=== PATIENT | female | born 1985 | race Native Hawaiian/Other Pacific Islander ===

== ENCOUNTER 2017-06-09 23:03 | Inpatient (IN) | payer OTHER ==
[~2017-06-09 23:03] MED LIST: AMIDATE IV ONE; ZEMURON IV ONE
[2017-06-09] MEDS ORDERED: ACTIDOSE-AQUA PO ONE (23:24)
[2017-06-09] MEDS ORDERED: ACTIDOSE SORBITOL ONE (23:24)
[2017-06-09] MEDS ORDERED: VASELINE LIP THERAPY TP PRN (23:25)
[2017-06-09] MEDS ORDERED: ARTIFICIAL TEARS OPHTH OINT OU PRN (23:25)
--- NOTE | 2017-06-09 23:30 | Emergency Department Report ---
ED General Adult HPI - General Chief complaint: Overdose Stated complaint: SUICIDAL Time Seen by Provider: 06/09/17 23:24 Source: patient, EMS (verbal report received from EMS.ems notes not available at time of chart dictation) Mode of arrival: Stretcher Limitations: Altered Mental Status, Physical Limitation, Other - History of Present Illness Initial comments: This is a 32-year-old female who was previously unknown to this provider. The patient is brought to the hospital by EMS for overdose and unresponsiveness. As per verbal report from EMS, patient overdosed on a number of medications, they don't know what medication she took, there are no how much he took, they think the ingestion was approximately 1 hour prior to arrival to this hospital. They report the patient was found collapsed in the bathroom. Upon arrival to the ER, the patient was very sleepy. She did answer some questions, and did respond to sternal rub, but then would immediately become obtunded again. Fingerstick was within normal limits. Given concern for polysubstance overdose , patient's altered mental status and obtundation, decision made to intubate patient for airway protection. Patient is intubated using rapid sequence intubation in cervical spine immobilization techniques. Because she is found on the floor, code trauma is called overhead. A postintubation x-ray demonstrated right mainstem intubation and left hemithorax atelectasis, endotracheal tube was retracted to 22 cm at the lips, post procedure x-ray demonstrated appropriate aeration of the bilateral lung szymanski and appropriate basement of the endotracheal tube. The patient is placed on a 1013, an oral gastric tube is ordered, 50 g of charcoal ordered, EKG, CT scan of the brain and cervical spine pending, serum toxicology studies pending, so far no family has arrived in the ER, we will discuss with the [facility] once her initial laboratory studies have resulted. -: This evening Consistency: constant Improves with: none Worsens with: none Associated Symptoms: confusion, weakness ED Review of Systems ROS: Stated complaint: SUICIDAL Other details as noted in HPI Comment: Unobtainable due to pts medical conditions ED Past Medical Hx - Past Medical History Previous Medical History?: Yes - Social History Smoking Status: Unknown if ever smoked ED Physical Exam - General Limitations: Altered Mental Status, Physical Limitation, Other General appearance: obtunded - Head Head exam: Present: atraumatic, normocephalic - Eye Eye exam: Present: PERRL, EOMI - ENT ENT exam: Present: normal exam, normal orophraynx - Neck Neck exam: Present: normal inspection. Absent: tenderness, meningismus - Respiratory Respiratory exam: Present: normal lung sounds bilaterally. Absent: respiratory distress, wheezes, rales, rhonchi, stridor - Cardiovascular Cardiovascular Exam: Present: normal rhythm, tachycardia, normal heart sounds. Absent: bradycardia, irregular rhythm, systolic murmur, diastolic murmur, rubs, gallop - GI/Abdominal GI/Abdominal exam: Present: soft, normal bowel sounds. Absent: distended, tenderness, guarding, rebound, rigid - Rectal Rectal exam: Present: normal inspection - External exam: Present: normal external exam - Extremities Exam Extremities exam: Present: normal inspection, full ROM, normal capillary refill , other (patient moving 4 extremities prior to intubation). Absent: pedal edema , joint swelling, calf tenderness - Back Exam Back exam: Present: normal inspection. Absent: tenderness, CVA tenderness (R), paraspinal tenderness - Neurological Exam Neurological exam: Present: altered - Psychiatric Psychiatric exam: Present: suicidal ideation - Skin Skin exam: Present: warm, dry ED Course Vital Signs 06/09/17 06/09/17 06/09/17 23:10 23:11 23:16 Pulse Rate 79 78 84 Respiratory 20 9 L Rate Blood Pressure 123/76 O2 Sat by Pulse 99 17 L 100 Oximetry 06/09/17 06/09/17 06/10/17 23:30 23:45 00:13 Pulse Rate 119 H 81 87 Respiratory 18 18 18 Rate Blood Pressure 179/114 168/101 168/101 O2 Sat by Pulse 99 100 100 Oximetry 06/10/17 06/10/17 06/10/17 00:16 00:30 00:46 Pulse Rate 87 85 82 Respiratory 18 18 19 Rate Blood Pressure 168/101 168/110 O2 Sat by Pulse 100 100 100 Oximetry 06/10/17 06/10/17 06/10/17 01:00 01:16 01:30 Pulse Rate 79 74 74 Respiratory 17 18 13 Rate Blood Pressure 139/89 129/75 126/83 O2 Sat by Pulse 100 100 100 Oximetry - Reevaluation(s) Reevaluation #1: 06/10/17 00:[address] scan of the brain and cervical spine negative for acute disease Reevaluation #2: 06/10/17 01:28 Serum toxicology studies are unremarkable. Urine toxicology study pending. EKG is unremarkable. 06/10/17 01:42 Reevaluation #3: 06/10/17 01:42 Case discussed with Krista at the [facility], who hasn't turn discussed the patient's care with Dr. Beckett consulting vertical mill operator. They recommend supportive care at this time. They're specifically okay with fentanyl and propofol sedation. Don't recommend any specific antidote at this time. Hospital physiciansto arrange admission. Reevaluation #4: 06/10/17 02:15 Arterial blood gases appreciated. Respiratory therapy to adjust FiO2 appropriately. The Hospital physician, Dr. Lopez accepts the patient to the medical service. - Consultations Consultation #1: 06/10/17 00:42 Case discussed with critical care physician, Dr. Hair; she agrees with management and will see the patient in consultation. - Intubation Time Out Performed: No (emergent) Sedative: Etomidate Mg Given: 20 Paralytic: Rocuronium Laryngoscope: Marlyn Size: 3 ET Tube Size: 7.5 Tube Secured Location: teeth Tube Placement Confirmation: visualized tube passing t Patient Tolerated Procedure: well Intubation Complications: none Additional Comments: Patient placed on nasal cannula at 15 L/m. Placed on bag valve mask. Received bag valve mask ventilation. Intubated with one attempt using direct laryngoscopy without complication or difficulty. ED Medical Decision Making - Lab Data Result diagrams: 06/09/17 23:20 06/09/17 23:20 Vital Signs 06/09/17 23:11 Pulse Rate 78 O2 Sat by Pulse 17 L Oximetry Lab Results 06/09/17 06/09/17 06/09/17 Range/Units 23:20 23:20 23:20 WBC 9.9 (4.5-11.0) K/mm3 RBC 4.77 (3.65-5.03) M/mm3 Hgb 13.9 (10.1-14.3) gm/dl Hct 41.4 (30.3-42.9) % MCV 87 (79-97) fl MCH 29 (28-32) pg MCHC 34 (30-34) % RDW 13.4 (13.2-15.2) % Plt Count 260 (140-440) K/mm3 Lymph % (Auto) 28.5 (13.4-35.0) % Lamar % (Auto) 7.0 (0.0-7.3) % Eos % (Auto) 1.3 (0.0-4.3) % Baso % (Auto) 0.4 (0.0-1.8) % Lymph # 2.8 (1.2-5.4) K/mm3 Lamar # 0.7 (0.0-0.8) K/mm3 Eos # 0.1 (0.0-0.4) K/mm3 Baso # 0.0 (0.0-0.1) K/mm3 Seg Neutrophils % 62.8 (40.0-70.0) % Seg Neutrophils # 6.2 (1.8-7.7) K/mm3 PT 11.8 L (12.2-14.9) Sec. INR 0.83 L (0.87-1.13) Sodium 141 (137-145) mmol/L Potassium 4.0 (3.6-5.0) mmol/L Chloride 100.2 (98-107) mmol/L Carbon Dioxide 28 (22-30) mmol/L Anion Gap 17 mmol/L BUN 8 (7-17) mg/dL Creatinine 0.6 L (0.7-1.2) mg/dL Estimated GFR > 60 ml/min BUN/Creatinine Ratio 13 % Glucose 105 H (65-100) mg/dL Calcium 9.1 (8.4-10.2) mg/dL Magnesium 1.80 (1.7-2.3) mg/dL Total Bilirubin 0.20 (0.1-1.2) mg/dL AST 22 (5-40) units/L ALT 23 (7-56) units/L Alkaline Phosphatase 105 (35-129) units/L Total Creatine Kinase 101 (30-135) units/L Total Protein 7.6 (6.3-8.2) g/dL Albumin 4.4 (3.9-5) g/dL Albumin/Globulin Ratio 1.4 % Plasma/Serum Alcohol (0-0.07) % 06/09/17 Range/Units 23:20 WBC (4.5-11.0) K/mm3 RBC (3.65-5.03) M/mm3 Hgb (10.1-14.3) gm/dl Hct (30.3-42.9) % MCV (79-97) fl MCH (28-32) pg MCHC (30-34) % RDW (13.2-15.2) % Plt Count (140-440) K/mm3 Lymph % (Auto) (13.4-35.0) % Lamar % (Auto) (0.0-7.3) % Eos % (Auto) (0.0-4.3) % Baso % (Auto) (0.0-1.8) % Lymph # (1.2-5.4) K/mm3 Lamar # (0.0-0.8) K/mm3 Eos # (0.0-0.4) K/mm3 Baso # (0.0-0.1) K/mm3 Seg Neutrophils % (40.0-70.0) % Seg Neutrophils # (1.8-7.7) K/mm3 PT (12.2-14.9) Sec. INR (0.87-1.13) Sodium (137-145) mmol/L Potassium (3.6-5.0) mmol/L Chloride (98-107) mmol/L Carbon Dioxide (22-30) mmol/L Anion Gap mmol/L BUN (7-17) mg/dL Creatinine (0.7-1.2) mg/dL Estimated GFR ml/min BUN/Creatinine Ratio % Glucose (65-100) mg/dL Calcium (8.4-10.2) mg/dL Magnesium (1.7-2.3) mg/dL Total Bilirubin (0.1-1.2) mg/dL AST (5-40) units/L ALT (7-56) units/L Alkaline Phosphatase (35-129) units/L Total Creatine Kinase (30-135) units/L Total Protein (6.3-8.2) g/dL Albumin (3.9-5) g/dL Albumin/Globulin Ratio % Plasma/Serum Alcohol < 0.01 (0-0.07) % - EKG Data -: EKG Interpreted by Wi EKG shows normal: sinus rhythm, axis, intervals, QRS complexes, ST-T waves - EKG Data When compared to previous EKG there are: previous EKG unavailable Interpretation: normal EKG - Radiology Data Radiology results: pending, report reviewed, image reviewed X-ray of the chest status post intubation shows right mainstem intubation, left hemithorax opacification, appropriate placement of oral gastric tube. After endotracheal tube has been retracted 4 cm, post intubation x-ray appears appropriate. Opacification has resolved. Abdominal x-ray appears to be within normal limits. Noncontrast CT scan of the brain and cervical spine: - Medical Decision Making Differential diagnosis, including but not limited to: Polysubstance overdose, toxic encephalopathy, respiratory failure Patient is placed on a 1013. Psychiatry team should follow as an inpatient. Critical Care Time: Yes Critical care time in (mins) excluding proc time.: 45 Critical care attestation.: If time is entered above; I have spent that time in minutes in the direct care of this critically ill patient, excluding procedure time. ED Disposition Clinical Impression: Overdose Disposition: DC-09 OP ADMIT IP TO THIS HOSP Is pt being admited?: Yes Condition: Critical Referrals: PRIMARY CARE, [Primary Care Provider] - 3-5 Days
[2017-06-09] MEDS: DIPRIVAN 10 MG/ML 1,000 MG/100 ML BOTTLE IV SCH (23:40)
[2017-06-09] MEDS ORDERED: NACL 0.9% 500 ML IV SCH (23:45)
[2017-06-09] MEDS ORDERED: fentaNYL DRIP Premix 2,000 MCG/100 ML BAG IV SCH (23:45)
[2017-06-09 23:52] LABS: Basophils % (Auto) 0.4 % (0.0-1.8); Eosinophils # (Auto) 0.1 K/mm3 (0.0-0.4); Eosinophils % (Auto) 1.3 % (0.0-4.3); Hematocrit 41.4 % (30.3-42.9); Hemoglobin 13.9 gm/dl (10.1-14.3); Lymphocytes # (Auto) 2.8 K/mm3 (1.2-5.4); Lymphocytes % (Auto) 28.5 % (13.4-35.0); Mean Corpuscular HGB Conc 34 % (30-34); Mean Corpuscular Hemoglobin 29 pg (28-32); Mean Corpuscular Volume 87 fl (79-97); Monocytes # (Auto) 0.7 K/mm3 (0.0-0.8); Platelet Count 260 K/mm3 (140-440); Red Blood Count 4.77 M/mm3 (3.65-5.03); Red Cell Distribution Width 13.4 % (13.2-15.2)
[2017-06-10 00:23] LABS: INR 0.83 (0.87-1.13)
--- NOTE | 2017-06-10 00:26 | XRay Report ---
FINAL REPORT EXAM: XR CHEST 1V AP HISTORY: ETT placement TECHNIQUE: A portable supine view of the chest was obtained. FINDINGS: The tip of the ET tube is in the right mainstem bronchus. It needs to be pulled back 5 cm for optimal positioning. There is diffuse atelectasis in opacification of the left hemithorax. Underlying mucous plugging cannot be excluded. The right lung is clear. The heart size is normal. There is NG tube in the stomach. The bones and soft tissues otherwise do not show any acute changes. IMPRESSION: The ET tube is in the right mainstem bronchus and needs to be pulled back 5 cm. Opacification of the left hemithorax secondary to diffuse atelectasis and/or mucous plugging. NG tube in good position in the stomach.
[2017-06-10 00:31] LABS: Alanine Aminotransferase 23 units/L (7-56); Albumin 4.4 g/dL (3.9-5); BUN/Creatinine Ratio 13; Blood Urea Nitrogen 8 mg/dL (7-17); Calcium 9.1 mg/dL (8.4-10.2); Hemolysis Index 35
--- NOTE | 2017-06-10 00:33 | XRay Report ---
FINAL REPORT EXAM: XR ABDOMEN 1V AP HISTORY: overdose ? bezoar TECHNIQUE: Two views of the abdomen were obtained. FINDINGS: The abdominal bowel gas pattern is unremarkable. There is a moderate amount retained feces in the colon. There is an NG tube in place with tip in the antral region the stomach. There is no evidence of a bezoar. There are surgical clips in the right upper quadrant. The skeletal structures are unremarkable. IMPRESSION: Unremarkable bowel gas pattern. No evidence of a bezoar.
--- NOTE | 2017-06-10 00:38 | Cat Scan Report ---
FINAL REPORT EXAM: CT HEAD/BRAIN WO CON HISTORY: Overdose TECHNIQUE: Routine axial imaging was obtained of the brain without IV contrast FINDINGS: The ventricular system is appropriate in size and is symmetric. There is no evidence of acute stroke or hemorrhage. The visualized sinuses are clear. The mastoid air cells are well pneumatized. The calvarium appears intact IMPRESSION: Within normal limits.
--- NOTE | 2017-06-10 00:40 | Cat Scan Report ---
FINAL REPORT EXAM: CT CERVICAL SPINE WO CON HISTORY: ams TECHNIQUE: Routine axial imaging was obtained of the cervical spine without IV contrast with sagittal and coronal reconstructions. FINDINGS: The disc heights and alignment appear normal. The canal size is normal. There is no evidence of fracture. The pre vertebral soft tissues and C1-C2 articulation appear intact. Soft tissues otherwise reveal an endotracheal tube and NG tube coursing down the neck. IMPRESSION: No evidence of acute injury to the cervical spine.
--- NOTE | 2017-06-10 00:48 | XRay Report ---
FINAL REPORT EXAM: XR CHEST 1V AP HISTORY: ett placement TECHNIQUE: A repeat supine view of the chest was obtained following repositioning of the ET tube. Comparison is made to the earlier study. FINDINGS: The tip of the ET tube is 1 cm above the marbin. There is improved aeration in the left lung with minimal residual atelectatic changes. The right lung is clear. The heart size is normal. The NG tube is in good position in the stomach. The bones soft tissues otherwise are unchanged IMPRESSION: Satisfactory position of the tube which is now 1 cm above the marbin Re-expansion of the left lung with minimal residual atelectatic changes.
[2017-06-10] MEDS ORDERED: NACL 0.9% 1000 ML 1,000 ML IV ONE (01:32)
[2017-06-10] MEDS ORDERED: fentaNYL DRIP Premix 2,000 MCG/100 ML BAG IV SCH (02:00)
[2017-06-10] MEDS: DIPRIVAN 10 MG/ML 1,000 MG/100 ML BOTTLE IV SCH ×2 (05:00→11:43)
--- NOTE | 2017-06-10 06:15 | History and Physical Report ---
History of Present Illness Date of examination: 06/10/17 History of present illness: 32-year-old woman with unknown medical problems brought to the emergency room because she was found at home unresponsive. She was brought to the emergency room his possible drug overdose and was intubated. Review of system is unobtainable PAST MEDICAL HISTORY: Unknown PAST SURGICAL HISTORY:Unknown FAMILY HISTORY:Unknown SOCIAL HISTORY:Unknown Medications and Allergies Allergies Allergy/AdvReac Type Severity Reaction Status Date / Time No Known Allergies Allergy Verified 06/10/17 04:34 Active Meds: Active Medications Hydrophilic Ointment (Vaseline Lip Therapy) 1 applic TP Q2HR PRN PRN Reason: Dry Lips Propofol (Diprivan 10 Mg/Ml) 1,000 mg in 100 mls @ 4.5 mls/hr IV TITR ZACK; 5 MCG/KG/MIN PRN Reason: Protocol Last Titration: 06/10/17 04:32 Dose: Infused Fentanyl Citrate (Fentanyl Drip Premix) 2,000 mcg in 100 mls @ 7.5 mls/hr IV TITR ZACK; 1 MCG/KG/HR PRN Reason: Protocol Last Titration: 06/10/17 03:20 Dose: 0.66 mcg/kg/hr, 5 mls/hr Multi-Ingred Cream/Lotion/Oil/Oint (Artificial Tears Ophth Oint) 1 applic OU Q4HR PRN PRN Reason: Dry Eye(s) Sodium Chloride (Nacl 0.9% 500 Ml) 1 ml IV DIRECT ZACK Exam - Physical Exam Narrative exam: Gen. appearance: Patient lying in bed in no acute distress, intubated, sedated HEENT: Normocephalic/atraumatic, pupils equal round reactive to light, unable to do extra ocular movement , no scleral icterus, no JVD or thyromegaly or nodule, neck is supple, mucous membrane moist, no erythema or exudate Heart: S1-S2, regular rate and rhythm Lungs: Clear to auscultation bilateral breathing comfortable Abdomen: Positive bowel sounds, nontender, nondistended, no organomegaly Extremities: No edema, cyanosis, clubbing Neuro::sedated Skin: No rash, nodules, warm dry - Constitutional Vitals: Temp Pulse Resp BP Pulse Ox 67 18 106/66 99 06/10/17 05:16 06/10/17 05:16 06/10/17 05:16 06/10/17 05:16 Results - Labs CBC & Chem 7: 06/09/17 23:20 06/09/17 23:20 Labs: Abnormal lab results 06/09/17 06/09/17 06/09/17 Range/Units 23:20 23:20 23:20 PT 11.8 L (12.2-14.9) Sec. INR 0.83 L (0.87-1.13) POC ABG pO2 (80-105) Creatinine 0.6 L (0.7-1.2) mg/dL Glucose 105 H (65-100) mg/dL Salicylates < 0.3 L (2.8-20.0) mg/dL 06/10/17 Range/Units 01:42 PT (12.2-14.9) Sec. INR (0.87-1.13) POC ABG pO2 242 H (80-105) Creatinine (0.7-1.2) mg/dL Glucose (65-100) mg/dL Salicylates (2.8-20.0) mg/dL - Imaging and Cardiology EKG: image reviewed Chest x-ray: image reviewed Abdominal x-ray: image reviewed CT Scan - head: report reviewed Assessment and Plan CT C-spine revealed Assessment Respiratory failure Possible drug overdose Plan Admit to medicine Start IV fluids, check cardiac enzymes, consult critical care DVT prophylaxis
[2017-06-10] MEDS ORDERED: TYLENOL PR PRN (06:16)
[2017-06-10] MEDS ORDERED: NACL 0.9% 1000 ML 1,000 ML IV SCH (07:00)
[2017-06-10 07:15] LABS: Creatine Kinase MB 1.2 ng/mL (0.0-4.0)
[2017-06-10] MEDS ORDERED: LOVENOX SUB-Q SCH (10:00)
--- NOTE | 2017-06-10 11:08 | Event Note ---
Date: 06/10/17 Patient seen and examined admitted this am with drug overdose and AMS consulted critical care, wean off sedation start iv fluid, DVT and GI PX will consult psych when off vent
[2017-06-10] MEDS: LOVENOX SUB-Q SCH (11:43)
[2017-06-10] MEDS ORDERED: PROTONIX IV SCH (12:00)
[2017-06-10 12:34] LABS: Creatine Kinase MB 1.4 ng/mL (0.0-4.0)
[2017-06-10 12:53] LABS: Alanine Aminotransferase 21 units/L (7-56); Albumin 3.3 g/dL (3.9-5); BUN/Creatinine Ratio 16; Blood Urea Nitrogen 8 mg/dL (7-17); Calcium 7.9 mg/dL (8.4-10.2); Hemolysis Index 27
[2017-06-10 13:42] LABS: Amphetamine Screen,Urine PRESUMPTIVE NEGATIVE; Cannabinoid Screen,Urine PRESUMPTIVE NEGATIVE; Cocaine Screen,Urine PRESUMPTIVE NEGATIVE; Methadone Screen,Urine PRESUMPTIVE NEGATIVE; Opiate Screen,Urine PRESUMPTIVE NEGATIVE
[2017-06-10 14:01] LABS: Benzodiazepines Screen,Urine PRESUMPTIVE POSITIVE
--- NOTE | 2017-06-10 17:33 | Consultation ---
History of Present Illness Consult date: 06/10/17 Requesting physician: CESAR TRINIDAD Reason for consult: other (Acute hypoxic respiratory failure on MVS, acute encephalopathy, drug overdose) History of present illness: History per medical records, patient was intubated, sedated This is a 32-year-old female who was previously unknown to this provider. The patient is brought to the hospital by EMS for overdose and unresponsiveness. As per verbal report from EMS, patient overdosed on a number of medications, they don't know what medication she took, there are no how much he took, they think the ingestion was approximately 1 hour prior to arrival to this hospital. They report the patient was found collapsed in the bathroom. Upon arrival to the ER, the patient was very sleepy. She did answer some questions, and did respond to sternal rub, but then would immediately become obtunded again. Fingerstick was within normal limits. Given concern for polysubstance overdose , patient's altered mental status and obtundation, decision made to intubate patient for airway protection. Patient is intubated using rapid sequence intubation in cervical spine immobilization techniques. Because she is found on the floor, code trauma is called overhead. A postintubation x-ray demonstrated right mainstem intubation and left hemithorax atelectasis, endotracheal tube was retracted to 22 cm at the lips, post procedure x-ray demonstrated appropriate aeration of the bilateral lung szymanski and appropriate basement of the endotracheal tube. The patient is placed on a 1013, an oral gastric tube is ordered, 50 g of charcoal ordered, EKG, CT scan of the brain and cervical spine pending, serum toxicology studies pending, so far no family has arrived in the ER, we will discuss with the [facility] once her initial laboratory studies have resulted. Medications and Allergies Allergies Allergy/AdvReac Type Severity Reaction Status Date / Time No Known Allergies Allergy Verified 06/10/17 04:34 Active Meds: Active Medications Acetaminophen (Tylenol) 650 mg PO Q4H PRN PRN Reason: Pain MILD(1-3)/Fever >100.5/GROSS Acetaminophen (Tylenol) 650 mg TN Q4H PRN PRN Reason: Pain MILD(1-3)/Fever >100.5/GROSS Enoxaparin Sodium (Lovenox) 40 mg SUB-Q QDAY@1000 ZACK Last Admin: 06/10/17 11:43 Dose: 40 mg Famotidine (Pepcid) 20 mg IV BID ZACK Hydrophilic Ointment (Vaseline Lip Therapy) 1 applic TP Q2HR PRN PRN Reason: Dry Lips Propofol (Diprivan 10 Mg/Ml) 1,000 mg in 100 mls @ 4.5 mls/hr IV TITR ZACK; 5 MCG/KG/MIN PRN Reason: Protocol Last Admin: 06/10/17 11:43 Dose: 30 mcg/kg/min, 27 mls/hr Fentanyl Citrate (Fentanyl Drip Premix) 2,000 mcg in 100 mls @ 7.5 mls/hr IV TITR ZACK; 1 MCG/KG/HR PRN Reason: Protocol Last Titration: 06/10/17 03:20 Dose: 0.66 mcg/kg/hr, 5 mls/hr Dextrose/Sodium Chloride (D5ns) 1,000 mls @ 100 mls/hr IV DIRECT ZACK Multi-Ingred Cream/Lotion/Oil/Oint (Artificial Tears Ophth Oint) 1 applic OU Q4HR PRN PRN Reason: Dry Eye(s) Ondansetron HCl (Zofran) 4 mg IV Q8H PRN PRN Reason: N/V unrelieved by Reglan Sodium Chloride (Nacl 0.9% 500 Ml) 1 ml IV DIRECT ZACK Review of Systems ROS unobtainable: due to endotracheal tube Physical Examination Vital signs: Vital Signs Pulse Resp Pulse Ox 79 20 99 06/09/17 23:10 06/09/17 23:10 06/09/17 23:10 Gen. appearance: Patient lying in bed in no acute distress, intubated, sedated HEENT: Normocephalic/atraumatic, pupils equal round reactive to light, unable to do extra ocular movement , no scleral icterus, no JVD or thyromegaly or nodule, neck is supple, mucous membrane moist, no erythema or exudate Heart: S1-S2, regular rate and rhythm Lungs: Clear to auscultation bilateral breathing comfortable Abdomen: Positive bowel sounds, nontender, nondistended, no organomegaly Extremities: No edema, cyanosis, clubbing Neuro::sedated Skin: No rash, nodules, warm dry Results - Laboratory Findings CBC and BMP: 06/09/17 23:20 06/10/17 11:49 ABG POC ABG pH 7.441 (7.35-7.45) 06/10/17 06:27 POC ABG pCO2 33.5 (35-45) L 06/10/17 06:27 POC ABG pO2 110 (80-105) H 06/10/17 06:27 POC ABG HCO3 22.8 06/10/17 06:27 POC ABG Total CO2 24 06/10/17 06:27 POC ABG O2 Sat 99 06/10/17 06:27 PT/INR, D-dimer PT 11.8 Sec. (12.2-14.9) L 06/09/17 23:20 INR 0.83 (0.87-1.13) L 06/09/17 23:20 Abnormal lab findings: Abnormal Labs 06/09/17 06/09/17 06/09/17 23:20 23:20 23:20 PT 11.8 L INR 0.83 L POC ABG pCO2 POC ABG pO2 Sodium Carbon Dioxide Creatinine 0.6 L Glucose 105 H Calcium Total Creatine Kinase Total Protein Albumin Salicylates < 0.3 L 06/10/17 06/10/17 06/10/17 01:42 06:27 11:29 PT INR POC ABG pCO2 33.5 L POC ABG pO2 242 H 110 H Sodium Carbon Dioxide Creatinine Glucose Calcium Total Creatine Kinase 228 H Total Protein Albumin Salicylates 06/10/17 11:49 PT INR POC ABG pCO2 POC ABG pO2 Sodium 135 L Carbon Dioxide 20 L D Creatinine 0.5 L Glucose Calcium 7.9 L Total Creatine Kinase Total Protein 5.9 L D Albumin 3.3 L Salicylates - Diagnostic Findings Chest x-ray: image reviewed (initial xray showed right mainstem intubation, second CXR shows retracted ETT with re-expansion of left lung) Assessment and Plan Acute hypoxic respiratory Acute encephalopathy Drug overdose Recommendations -ICU admission -VAP bundle -Aspiration precautions, HOB >30 -Initiate enteric feedings within 72 hours if not extubated -VTE prophylaxis -Agitation management -Stress ulcer prophylaxis - Critical care time in (mins) excluding proc time.: 35 Critical care attestation.: If time is entered above; I have spent that time in minutes in the direct care of this critically ill patient, excluding procedure time.
[2017-06-10] MEDS: D5NS 1,000 ML IV SCH (18:00)
[2017-06-10] MEDS: PEPCID IV SCH (22:30)
--- NOTE | 2017-06-11 03:37 | XRay Report ---
FINAL REPORT PROCEDURE: XR CHEST 1V AP TECHNIQUE: Chest radiograph anteroposterior view. CPT 26210 HISTORY: follow up respiratory failure COMPARISON: No prior studies are available for comparison. FINDINGS: Heart: Normal. Mediastinum/Vessels: Normal. Lungs/Pleural space: There is right upper lobe atelectasis. There are no infiltrates, effusions or pneumothoraces.. Bony thorax: No acute osseous abnormality. Life support devices: The endotracheal tube is in the mid trachea. The NG tube is in the stomach.. IMPRESSION: Heart size is normal. There is right upper lobe atelectasis. There are no infiltrates, effusions or pneumothoraces.. The endotracheal tube is in the mid trachea. The NG tube is in the stomach..
[2017-06-11 04:53] LABS: Basophils % (Auto) 0.3 % (0.0-1.8); Eosinophils # (Auto) 0.2 K/mm3 (0.0-0.4); Eosinophils % (Auto) 1.9 % (0.0-4.3); Hematocrit 37.3 % (30.3-42.9); Hemoglobin 12.5 gm/dl (10.1-14.3); Lymphocytes # (Auto) 2.1 K/mm3 (1.2-5.4); Lymphocytes % (Auto) 26.5 % (13.4-35.0); Mean Corpuscular HGB Conc 34 % (30-34); Mean Corpuscular Hemoglobin 29 pg (28-32); Mean Corpuscular Volume 87 fl (79-97); Monocytes % (Auto) 12.1 % (0.0-7.3); Platelet Count 209 K/mm3 (140-440); Red Blood Count 4.29 M/mm3 (3.65-5.03); Red Cell Distribution Width 13.6 % (13.2-15.2)
[2017-06-11 04:56] LABS: BUN/Creatinine Ratio 10; Blood Urea Nitrogen 5 mg/dL (7-17); Calcium 7.5 mg/dL (8.4-10.2); Hemolysis Index 9
[2017-06-11] MEDS ORDERED: ATIVAN ONE (06:30)
[2017-06-11] MEDS ORDERED: ATIVAN IV ONE (06:41)
[2017-06-11] MEDS: LOVENOX SUB-Q SCH (10:20)
[2017-06-11] MEDS: PEPCID IV SCH (10:20)
--- NOTE | 2017-06-11 10:44 | Progress Note ---
Assessment and Plan Acute hypoxemic respiratory Acute encephalopathy Drug overdose Obesity - downgrade to medical floor - continue aspiration precautions, HOB >30 - dysphagia screen and advance diet as tolerated - VTE prophylaxis - Agitation management - Stress ulcer prophylaxis ...improved Subjective Date of service: 06/11/17 Principal diagnosis: Acute Hypoxemic Respiratory Failure; Drug OD Interval history: Patient seen today for: DKA Seen and examined at bedside; 24 hour events reviewed; nursing and respiratory care staff consulted; no adverse overnight events reported to me; resting peacefully in bed;self extubated earlier; denies acute chest pains or increased SOB; mild tachycardia but denies palpitations; states she does not remember the names of the drugs she took but admits she takes xanax occasionally; denied suicidal intent Objective Vital Signs - 12hr 06/10/17 06/10/17 06/10/17 22:45 22:54 23:00 Temperature Pulse Rate 69 69 Respiratory 18 18 18 Rate Blood Pressure 111/70 109/68 Blood Pressure [Right] O2 Sat by Pulse 98 98 Oximetry 06/10/17 06/10/17 06/11/17 23:17 23:30 00:00 Temperature 98.8 F Pulse Rate 68 68 Respiratory 18 18 Rate Blood Pressure 111/71 109/67 Blood Pressure [Right] O2 Sat by Pulse 98 98 Oximetry 06/11/17 06/11/17 06/11/17 00:30 01:00 01:30 Temperature Pulse Rate 71 76 73 Respiratory 18 18 17 Rate Blood Pressure 106/65 115/75 100/70 Blood Pressure [Right] O2 Sat by Pulse 98 98 97 Oximetry 06/11/17 06/11/17 06/11/17 02:00 02:30 03:00 Temperature Pulse Rate 73 74 71 Respiratory 18 18 18 Rate Blood Pressure 110/69 109/73 112/69 Blood Pressure [Right] O2 Sat by Pulse 99 100 98 Oximetry 06/11/17 06/11/17 06/11/17 03:30 04:00 04:30 Temperature Pulse Rate 74 74 76 Respiratory 18 18 18 Rate Blood Pressure 119/75 110/71 114/70 Blood Pressure [Right] O2 Sat by Pulse 100 100 100 Oximetry 06/11/17 06/11/17 06/11/17 05:00 05:30 06:00 Temperature Pulse Rate 74 85 122 H Respiratory 18 17 15 Rate Blood Pressure 110/71 133/74 152/98 Blood Pressure [Right] O2 Sat by Pulse 100 99 100 Oximetry 06/11/17 06/11/17 06/11/17 07:00 07:05 07:30 Temperature 99.2 F Pulse Rate 138 H 133 H Respiratory 12 12 25 H Rate Blood Pressure Blood Pressure 138/79 131/74 [Right] O2 Sat by Pulse 100 100 90 Oximetry Constitutional: no acute distress, alert Eyes: non-icteric ENT: oropharynx moist Neck: supple, no lymphadenopathy, no JVD Effort: mildly labored Ascultation: Bilateral: rhonchi (scant in posterior bases) Percussion: Bilateral: not dull Cardiovascular: regular rate and rhythm Gastrointestinal: normoactive bowel sounds, soft, non-tender, non-distended Integumentary: normal Extremities: no cyanosis, no edema, pink and warm, pulses normal Neurologic: normal mental status, non-focal exam, pupils equal and round, motor strength normal and Psychiatric: mood appropriate, affect normal CBC and BMP: 06/11/17 04:13 06/11/17 04:13 ABG, PT/INR, D-dimer: ABG POC ABG pH 7.441 (7.35-7.45) 06/10/17 06:27 POC ABG pCO2 33.5 (35-45) L 06/10/17 06:27 POC ABG pO2 110 (80-105) H 06/10/17 06:27 POC ABG HCO3 22.8 06/10/17 06:27 POC ABG Total CO2 24 06/10/17 06:27 POC ABG O2 Sat 99 06/10/17 06:27 PT/INR, D-dimer PT 11.8 Sec. (12.2-14.9) L 06/09/17 23:20 INR 0.83 (0.87-1.13) L 06/09/17 23:20 Abnormal lab findings: Abnormal Labs 06/09/17 06/09/17 06/09/17 23:20 23:20 23:20 [place] % (Auto) [place] # PT 11.8 L INR 0.83 L POC ABG pCO2 POC ABG pO2 Sodium Carbon Dioxide BUN Creatinine 0.6 L Glucose 105 H Calcium Total Creatine Kinase Total Protein Albumin Salicylates < 0.3 L 06/10/17 06/10/17 06/10/17 01:42 06:27 11:29 [place] % (Auto) [place] # PT INR POC ABG pCO2 33.5 L POC ABG pO2 242 H 110 H Sodium Carbon Dioxide BUN Creatinine Glucose Calcium Total Creatine Kinase 228 H Total Protein Albumin Salicylates 06/10/17 06/11/17 06/11/17 11:49 04:13 04:13 [place] % (Auto) 12.1 H [place] # 1.0 H PT INR POC ABG pCO2 POC ABG pO2 Sodium 135 L Carbon Dioxide 20 L D BUN 5 L Creatinine 0.5 L 0.5 L Glucose 108 H Calcium 7.9 L 7.5 L Total Creatine Kinase Total Protein 5.9 L D Albumin 3.3 L Salicylates Chest x-ray: image reviewed
[2017-06-11] MEDS: D5NS 1,000 ML IV SCH (14:49)
--- NOTE | 2017-06-11 14:49 | Progress Note ---
Assessment and Plan Acute Respiratory failure required intubation - likely from drug overdose - s/p extubation today, pulmonary following Acute toxic encephalopathy - mental status at baseline now Possible drug overdose - will consult mental health General: Diet: regular DVT prophylaxis: lovenox GI prophylaxis: PPI Functional status: ambulate as tolerated Brief history: 32-year-old woman with unknown medical problems brought to the emergency room because she was found at home unresponsive. She was brought to the emergency room his possible drug overdose and was intubated. Hospitalist Physical exam: GENERAL: well-developed and well-nourished female lying on bed appeared to be in no discomfort. HEENT: Normocephalic. Atraumatic. No conjunctival congestion or icterus. Patient has moist mucous membranes. NECK: Supple. Trachea midline. CHEST/LUNGS: Clear to auscultated bilaterally, breathing nonlabored. No wheezes crackles or rhonchi. HEART/CARDIOVASCULAR: Regular in rate and rhythm. S1 and S2 positive. ABDOMEN: Abdomen is soft, nontender. Patient has normal bowel sounds. SKIN: There is no rash. Warm and dry. NEURO: No focal motor deficit. Follows command. MUSCULOSKELETAL: No joint effusion or tenderness. EXTRIMITY: No edema, no cyanosis or clubbing. PSYCH: appears very depressed. Subjective Date of service: 06/11/17 Principal diagnosis: Acute hypoxic respiratory failure on MVS, acute encephalopathy, drug OD Interval history: Pt seen and examined s/p extubation in the morning Objective - Constitutional Vitals: Vital Signs - 12hr 06/11/17 06/11/17 06/11/17 03:00 03:30 04:00 Temperature Pulse Rate 71 74 74 Respiratory 18 18 18 Rate Blood Pressure 112/69 119/75 110/71 Blood Pressure [Right] O2 Sat by Pulse 98 100 100 Oximetry 06/11/17 06/11/17 06/11/17 04:30 05:00 05:30 Temperature Pulse Rate 76 74 85 Respiratory 18 18 17 Rate Blood Pressure 114/70 110/71 133/74 Blood Pressure [Right] O2 Sat by Pulse 100 100 99 Oximetry 06/11/17 06/11/17 06/11/17 06:00 06:11 06:21 Temperature Pulse Rate 122 H 127 H 135 H Respiratory 15 16 17 Rate Blood Pressure 152/98 152/98 152/98 Blood Pressure [Right] O2 Sat by Pulse 100 98 100 Oximetry 06/11/17 06/11/17 06/11/17 06:31 06:41 06:51 Temperature Pulse Rate 133 H 118 H 131 H Respiratory 16 11 L 20 Rate Blood Pressure 148/92 148/92 148/92 Blood Pressure [Right] O2 Sat by Pulse 100 100 100 Oximetry 06/11/17 06/11/17 06/11/17 07:00 07:01 07:05 Temperature 99.2 F Pulse Rate 138 H 116 H Respiratory 12 20 12 Rate Blood Pressure 138/79 Blood Pressure 138/79 [Right] O2 Sat by Pulse 100 99 100 Oximetry 06/11/17 06/11/17 06/11/17 07:11 07:21 07:30 Temperature Pulse Rate 146 H 125 H 133 H Respiratory 17 10 L 25 H Rate Blood Pressure 138/79 138/79 Blood Pressure 131/74 [Right] O2 Sat by Pulse 99 100 90 Oximetry 06/11/17 06/11/17 06/11/17 07:31 07:41 07:51 Temperature Pulse Rate 133 H 118 H 124 H Respiratory 25 H 17 21 Rate Blood Pressure 131/74 131/74 131/74 Blood Pressure [Right] O2 Sat by Pulse 90 97 93 Oximetry 06/11/17 06/11/17 06/11/17 08:00 08:11 08:21 Temperature Pulse Rate 139 H 141 H Respiratory 10 L 21 22 Rate Blood Pressure 121/64 121/64 121/64 Blood Pressure [Right] O2 Sat by Pulse 91 94 89 Oximetry 06/11/17 06/11/17 06/11/17 08:30 08:41 08:51 Temperature Pulse Rate 127 H 143 H 119 H Respiratory 21 26 H 18 Rate Blood Pressure 113/60 113/60 113/60 Blood Pressure [Right] O2 Sat by Pulse Oximetry 06/11/17 06/11/17 06/11/17 09:01 09:11 09:21 Temperature Pulse Rate 124 H 141 H 122 H Respiratory 20 25 H 18 Rate Blood Pressure 113/60 113/60 113/60 Blood Pressure [Right] O2 Sat by Pulse 94 Oximetry 06/11/17 06/11/17 06/11/17 09:30 09:41 09:51 Temperature Pulse Rate Respiratory 21 20 17 Rate Blood Pressure 138/76 138/76 138/76 Blood Pressure [Right] O2 Sat by Pulse 85 90 Oximetry 06/11/17 06/11/17 06/11/17 10:00 10:11 10:21 Temperature Pulse Rate Respiratory 22 13 21 Rate Blood Pressure 122/68 122/68 122/68 Blood Pressure [Right] O2 Sat by Pulse 84 80 L 89 Oximetry 06/11/17 06/11/17 06/11/17 10:30 10:41 10:51 Temperature Pulse Rate Respiratory 18 22 19 Rate Blood Pressure 120/75 120/75 120/75 Blood Pressure [Right] O2 Sat by Pulse 57 L Oximetry 06/11/17 06/11/17 06/11/17 11:01 11:11 11:21 Temperature Pulse Rate Respiratory 19 22 13 Rate Blood Pressure 120/75 120/75 120/75 Blood Pressure [Right] O2 Sat by Pulse Oximetry 06/11/17 06/11/17 06/11/17 11:31 11:41 11:51 Temperature Pulse Rate Respiratory 25 H 21 20 Rate Blood Pressure 120/75 120/75 120/75 Blood Pressure [Right] O2 Sat by Pulse 92 92 93 Oximetry 06/11/17 06/11/17 06/11/17 12:01 12:11 12:21 Temperature Pulse Rate Respiratory 0 L 23 21 Rate Blood Pressure 120/75 120/75 120/75 Blood Pressure [Right] O2 Sat by Pulse 93 92 92 Oximetry 06/11/17 06/11/17 06/11/17 12:31 12:41 12:51 Temperature Pulse Rate 116 H 119 H Respiratory 25 H 23 25 H Rate Blood Pressure 120/75 120/75 120/75 Blood Pressure [Right] O2 Sat by Pulse 92 92 93 Oximetry 06/11/17 06/11/17 06/11/17 13:00 13:01 13:11 Temperature Pulse Rate 90 Respiratory 18 22 24 Rate Blood Pressure 120/75 120/75 Blood Pressure 131/74 [Right] O2 Sat by Pulse 100 91 91 Oximetry 06/11/17 06/11/17 13:20 13:31 Temperature Pulse Rate Respiratory 11 L 10 L Rate Blood Pressure 120/75 120/75 Blood Pressure [Right] O2 Sat by Pulse 91 97 Oximetry - Labs CBC & Chem 7: 06/11/17 04:13 06/11/17 04:13 Labs: Abnormal lab results 06/11/17 06/11/17 Range/Units 04:13 04:13 [place] % (Auto) 12.1 H (0.0-7.3) % [place] # 1.0 H (0.0-0.8) K/mm3 BUN 5 L (7-17) mg/dL Creatinine 0.5 L (0.7-1.2) mg/dL Glucose 108 H (65-100) mg/dL Calcium 7.5 L (8.4-10.2) mg/dL
[2017-06-11] MEDS: ZOFRAN IV PRN (18:22)
[2017-06-11] MEDS: TYLENOL PO PRN (20:09)
[2017-06-12] MEDS: PEPCID IV SCH ×3 (00:14→21:57)
[2017-06-12] MEDS: LOVENOX SUB-Q SCH (09:16)
[2017-06-12] MEDS: TYLENOL PO PRN (09:24)
[2017-06-12] MEDS: D5NS 1,000 ML IV SCH (11:14)
--- NOTE | 2017-06-12 13:00 | Consultation ---
History of Present Illness - Reason for Consult Consult date: 06/12/17 Reason for consult: Mental Health Evaluation Requesting physician: NIKHIL JUNG - Chief Complaint Chief complaint: "I wasn't trying to kill myself" - History of Present Psychiatric Illness 32 y.o. female brought to [facility] for possible overdose. Today the patient is calm and cooperative during the assessment. She stated that she took more medication than usual prior to her admission to the hospital. She stated that she wasn't trying to kill herself. She stated that she has a "special needs son" and her daughter attempted suicide recently. She stated that she has been "overwhelmed lately." Also, she stated that she currently unemployed. Per collateral information from her Tommy Saleh at [phone], he stated that they had an argument with the patient. After the argument, the patient stated, "I am sorry about this." He stated that he didn't know what she meant by the that statement. He stated founding the patient the patient unresponsive on the floor after she took a shower. He could not confirm or deny that his tried to kill herself by overdose when asked. The patient has a hx of depression/anxiety. She denies SI/HI's and AVH's. She denies manic episodes in the past. She denies sleep disturbance and a poor appetite. She denies recreational drug use and alcohol consumption (etoh). She stated that she takes Klonopin BID for anxiety and Nefazodone for depression. Medications and Allergies Allergies Allergy/AdvReac Type Severity Reaction Status Date / Time No Known Allergies Allergy Verified 06/10/17 04:34 Active Meds: Active Medications Acetaminophen (Tylenol) 650 mg PO Q4H PRN PRN Reason: Pain MILD(1-3)/Fever >100.5/GROSS Last Admin: 06/12/17 09:24 Dose: 650 mg Acetaminophen (Tylenol) 650 mg [place] Q4H PRN PRN Reason: Pain MILD(1-3)/Fever >100.5/GROSS Enoxaparin Sodium (Lovenox) 40 mg SUB-Q QDAY@1000 [facility] Last Admin: 06/12/17 09:16 Dose: Not Given Famotidine (Pepcid) 20 mg IV BID [facility] Last Admin: 06/12/17 09:12 Dose: 20 mg Dextrose/Sodium Chloride (D5ns) 1,000 mls @ 100 mls/hr IV DIRECT [facility]ACK Last Admin: 06/12/17 11:14 Dose: 100 mls/hr Ondansetron HCl (Zofran) 4 mg IV Q8H PRN PRN Reason: N/V unrelieved by Ariana Last Admin: 06/11/17 18:22 Dose: 4 mg Past psychiatric history - Past Medical History Past Medical History: other (2 Vaginal deliveries) Past Surgical History: No surgical history - past Psychiatric treatment and history Psych: Depression psychiatric treatment history: The patient has a hx of depression and seen in the outpatient psy setting. Denies a fam psy hx. Mental Status Exam - Vital signs Last Vital Signs Temp 98.0 F 06/12/17 08:09 Pulse 96 H 06/12/17 08:09 Resp 20 06/12/17 08:09 BP 121/75 06/12/17 08:09 Pulse Ox 98 06/12/17 08:09 - Exam Narrative exam: MSE: Appearance: calm, cooperative Behavior: regular eye contact Speech: regular rate and tone Mood: "okay" Affect: congruent to mood Thought Process: circumstantial Thought Content: denies SI/HI's and AVH's Motor Activity: lying in bed Cognition: A/O x3 Insight: variable Judgment: variable Results Result Diagrams: 06/11/17 04:13 06/11/17 04:13 All other labs normal. Assessment and Plan Assessment and plan: Impression: Hx of depression and anxiety. Today the patient is calm and cooperative during the assessment. The patient overdosed on multiple pills. The patient is positive for benzos. DDx: R/O Bipolar DO Recommendation/Plan: Continue 1013 with placement to inpatient psy services once medically clear. Start Paxil 10 mg PO daily for depression and Klonopin 0.5 mg BID for anxiety. Discussed possible suicidality/medication induced flower with patient reference Paxil.
--- NOTE | 2017-06-12 13:25 | Progress Note ---
Subjective - Chief Complaint Chief complaint: "I wasn't trying to kill myself" Mental Status Exam - Vital signs Last Vital Signs Temp 98.0 F 06/12/17 08:09 Pulse 96 H 06/12/17 08:09 Resp 20 06/12/17 08:09 BP 121/75 06/12/17 08:09 Pulse Ox 98 06/12/17 08:09
--- NOTE | 2017-06-12 14:53 | Progress Note ---
Assessment and Plan Acute Respiratory failure required intubation - likely from drug overdose - s/p extubation 06/11/17, Acute toxic encephalopathy - mental status at baseline now Possible drug overdose with SI - Consult mental health, placed on 1013 H/o depression - placed on paxil General: Diet: regular DVT prophylaxis: lovenox GI prophylaxis: PPI Functional status: ambulate as tolerated Disposition: inpt psych, pt is medically stable Brief history: 32-year-old woman with unknown medical problems brought to the emergency room because she was found at home unresponsive. She was brought to the emergency room his possible drug overdose and was intubated. Hospitalist Physical exam: GENERAL: well-developed and well-nourished female lying on bed appeared to be in no discomfort. HEENT: Normocephalic. Atraumatic. No conjunctival congestion or icterus. Patient has moist mucous membranes. NECK: Supple. Trachea midline. CHEST/LUNGS: Clear to auscultated bilaterally, breathing nonlabored. No wheezes crackles or rhonchi. HEART/CARDIOVASCULAR: Regular in rate and rhythm. S1 and S2 positive. ABDOMEN: Abdomen is soft, nontender. Patient has normal bowel sounds. SKIN: There is no rash. Warm and dry. NEURO: No focal motor deficit. Follows command. MUSCULOSKELETAL: No joint effusion or tenderness. EXTRIMITY: No edema, no cyanosis or clubbing. PSYCH: appears very depressed. Subjective Date of service: 06/12/17 Principal diagnosis: Acute Hypoxemic Respiratory Failure; Drug OD Interval history: Pt seen and examined patient appears tearful and wants to go home, states she did not want to kill herself Objective - Constitutional Vitals: Vital Signs - 12hr 06/12/17 08:09 Temperature 98.0 F Pulse Rate 96 H Respiratory 20 Rate Blood Pressure 121/75 O2 Sat by Pulse 98 Oximetry - Labs CBC & Chem 7: 06/11/17 04:13 06/11/17 04:13
[2017-06-12] MEDS: ZOFRAN IV PRN (16:26)
[2017-06-12] MEDS: PAXIL PO SCH (16:36)
--- NOTE | 2017-06-12 22:06 | Event Note ---
Date: 06/12/17 Patient alert, awake. No complaint of chest pain,shortness of breath and cough. Resting on room air. O2 saturation 100%.Chest xray improved. No fever, No leukocytosis. Patient stable from pulmonary point of view. Signing of the case . If any pulmonary help needed, call us back.
[2017-06-13] MEDS: PAXIL PO SCH (09:15)
[2017-06-13] MEDS: PEPCID IV SCH (09:16)
[2017-06-13] MEDS: LOVENOX SUB-Q SCH (09:21)
--- NOTE | 2017-06-13 11:57 | Progress Note ---
Subjective - Reason for Consult Consult date: 06/13/17 Reason for consult: Psychiatry Follow-up - Chief Complaint Chief complaint: "When can I leave" 32 y.o. female brought to [facility] for possible overdose. Today the patient is calm and cooperative during the assessment. The patient is adamant that she didn't try to kill herself. She stated, I made a mistake." I explained to her that her could not confirm or deny that she attempted suicide when asked. She was informed that collateral information is used to help determine treatment and dispo for a patient. She denies SI/HI's and AVH's. She denies any side effects from her medications. Mental Status Exam - Vital signs Last Vital Signs Temp 99.0 F 06/13/17 07:51 Pulse 83 06/13/17 07:51 Resp 20 06/13/17 07:51 BP 110/71 06/13/17 07:51 Pulse Ox 97 06/13/17 07:51 - Exam Narrative exam: MSE: Appearance: calm, cooperative Behavior: regular eye contact Speech: regular rate and tone Mood: "okay" Affect: congruent to mood Thought Process: circumstantial Thought Content: denies SI/HI's and AVH's Motor Activity: lying in bed Cognition: A/O x3 Insight: variable Judgment: variable Assessment and Plan Impression: Hx of depression and anxiety. Today the patient is calm and cooperative during the assessment. The patient overdosed on multiple pills. The patient is positive for benzos. DDx: R/O Bipolar DO Recommendation/Plan: Continue 1013 with placement to inpatient psy services. Continue Paxil 10 mg PO daily for depression and Klonopin 0.5 mg BID for anxiety. Discussed possible suicidality/medication induced flower with patient reference Paxil.
[2017-06-13] MEDS: TYLENOL PO PRN (15:04)
--- NOTE | 2017-06-13 15:52 | Progress Note ---
Assessment and Plan Acute Respiratory failure required intubation - likely from drug overdose - s/p extubation 06/11/17, Acute toxic encephalopathy - mental status at baseline now Possible drug overdose with SI - Consult mental health, placed on 1013 H/o depression - placed on paxil General: Diet: regular DVT prophylaxis: lovenox GI prophylaxis: PPI Functional status: ambulate as tolerated Disposition: inpt psych, pt is medically stable Brief history: 32-year-old woman with unknown medical problems brought to the emergency room because she was found at home unresponsive. She was brought to the emergency room his possible drug overdose and was intubated. Hospitalist Physical exam: GENERAL: well-developed and well-nourished female lying on bed appeared to be in no discomfort. HEENT: Normocephalic. Atraumatic. No conjunctival congestion or icterus. Patient has moist mucous membranes. NECK: Supple. Trachea midline. CHEST/LUNGS: Clear to auscultated bilaterally, breathing nonlabored. No wheezes crackles or rhonchi. HEART/CARDIOVASCULAR: Regular in rate and rhythm. S1 and S2 positive. ABDOMEN: Abdomen is soft, nontender. Patient has normal bowel sounds. SKIN: There is no rash. Warm and dry. NEURO: No focal motor deficit. Follows command. MUSCULOSKELETAL: No joint effusion or tenderness. EXTRIMITY: No edema, no cyanosis or clubbing. PSYCH: appears very depressed. Subjective Date of service: 06/13/17 Principal diagnosis: Acute Hypoxemic Respiratory Failure; Drug OD Interval history: Pt seen and examined patient appears sad and wants to go home, states she did not want to kill herself, but she was stressed out Objective - Constitutional Vitals: Vital Signs - 12hr 06/13/17 06/13/17 07:51 15:19 Temperature 99.0 F 99.6 F Pulse Rate 83 73 Respiratory 20 20 Rate Blood Pressure 110/71 117/71 O2 Sat by Pulse 97 97 Oximetry - Labs CBC & Chem 7: 06/11/17 04:13 06/11/17 04:13
[2017-06-13] MEDS: D5NS 1,000 ML IV SCH (18:10)
[2017-06-13] MEDS: PEPCID PO SCH (23:21)
[2017-06-14] MEDS: ZOFRAN IV PRN ×2 (02:34→11:11)
[2017-06-14] MEDS: D5NS 1,000 ML IV SCH ×2 (07:15→19:21)
[2017-06-14] MEDS: PEPCID PO SCH ×2 (11:11→22:15)
[2017-06-14] MEDS: LOVENOX SUB-Q SCH (11:12)
[2017-06-14] MEDS: PAXIL PO SCH (11:12)
[2017-06-14] MEDS: TYLENOL PO PRN ×2 (11:27→22:18)
--- NOTE | 2017-06-14 14:56 | Progress Note ---
Assessment and Plan Acute Respiratory failure required intubation - likely from drug overdose - s/p extubation 06/11/17, Acute toxic encephalopathy - mental status at baseline now Possible drug overdose with SI - Consult mental health, placed on 1013 H/o depression - placed on paxil General: Diet: regular DVT prophylaxis: lovenox GI prophylaxis: PPI Functional status: ambulate as tolerated Disposition: inpt psych, pt is medically stable Brief history: 32-year-old woman with unknown medical problems brought to the emergency room because she was found at home unresponsive. She was brought to the emergency room his possible drug overdose and was intubated. Hospitalist Physical exam: GENERAL: well-developed and well-nourished female lying on bed appeared to be in no discomfort. HEENT: Normocephalic. Atraumatic. No conjunctival congestion or icterus. Patient has moist mucous membranes. NECK: Supple. Trachea midline. CHEST/LUNGS: Clear to auscultated bilaterally, breathing nonlabored. No wheezes crackles or rhonchi. HEART/CARDIOVASCULAR: Regular in rate and rhythm. S1 and S2 positive. ABDOMEN: Abdomen is soft, nontender. Patient has normal bowel sounds. SKIN: There is no rash. Warm and dry. NEURO: No focal motor deficit. Follows command. MUSCULOSKELETAL: No joint effusion or tenderness. EXTRIMITY: No edema, no cyanosis or clubbing. PSYCH: appears very depressed. Subjective Date of service: 06/14/17 Principal diagnosis: Acute Hypoxemic Respiratory Failure; Drug OD Interval history: Pt seen and examined patient appears sad and wants to go home, states she did not want to kill herself, but she was stressed out still on 1013 Objective - Constitutional Vitals: Vital Signs - 12hr 06/14/17 08:16 Temperature 98.8 F Pulse Rate 75 Respiratory 20 Rate Blood Pressure 118/61 O2 Sat by Pulse 98 Oximetry - Labs CBC & Chem 7: 06/11/17 04:13 06/11/17 04:13
[2017-06-15] MEDS: D5NS 1,000 ML IV SCH (06:29)
[2017-06-15] MEDS: PEPCID PO SCH (09:39)
[2017-06-15] MEDS: LOVENOX SUB-Q SCH (09:39)
[2017-06-15] MEDS: PAXIL PO SCH (09:39)
--- NOTE | 2017-06-15 12:11 | Progress Note ---
Subjective - Reason for Consult Consult date: 06/15/17 Reason for consult: Psychiatry Follow-up - Chief Complaint Chief complaint: "Hello" 32 y.o. female brought to [facility] for possible overdose. Today the patient is calm and cooperative during the assessment. The patient is adamant that she didn't try to kill herself. She stated that she and her have talked and feel like they can workout some the problems they were having. I spoke with her Tommy Saleh, he stated that he feel that the patient is safe to return home once discharged. He confirmed that the patient has a scheduled outpatient psychiatry appt for 19 Jun 2017. The patient denies SI/HI's and AVHs'. She denies any side effects of her medications. Mental Status Exam - Vital signs Last Vital Signs Temp 98.7 F 06/15/17 07:53 Pulse 94 H 06/15/17 07:53 Resp 22 06/15/17 07:53 BP 106/62 06/15/17 07:53 Pulse Ox 97 06/15/17 07:53 - Exam Narrative exam: MSE: Appearance: calm, cooperative Behavior: regular eye contact Speech: regular rate and tone Mood: "okay" Affect: congruent to mood Thought Process: linear Thought Content: denies SI/HI's and AVH's Motor Activity: lying in bed Cognition: A/O x3 Insight: appropriate Judgment: appropriate Assessment and Plan Impression: Hx of depression and anxiety. Today the patient is calm and cooperative during the assessment. The patient is no threat to self. DDx: R/O Bipolar DO. I. This screening and assessment is based on information collected from the following sources: II. SUICIDE RISK SCREENING (within last 30 days): A.) Suicidal thoughts/behaviors: The patient denies SUICIDE RISK ASSESSMENT III. FACTORS THAT INCREASE RISK: A.) Demographic and Substance Use Factors: None B.) Current/Recent Factors (within past 3 months): Psychosocial/Environmental Factors: Family Dynamic issues Physical Illness: None Cognitive/Psychological Factors: None C.) Historical Factors: None D.) Diagnostic/Symptom/Treatment Factors: None E.) Acute Risk Factor Severity (DESC; MILD/MOD/SEVERE): Mild Other factors for this individual that increase risk: None IV. FACTORS THAT DECREASE RISK: Resilience/Protective Factors: Patient want to decrease her stress Other factors for this individual that decrease risk: Patient denies a desire to harm self V. Clinician's Formulation of Risk and Determination of level of Care: This is a 32-year-old female who may have taken her medications multiple times in one day and became unresponsive. She stated that this was a mistake not a suicide attempt. She stated that she have an outpatient psy services appt once discharged. Since being hospitalized the patient has consistently denied the desire to harm herself. Additionally, she has become insightful about how to better address her current issues. Patient is not impaired by substance. She is able to take care of her ADLs and is not at imminent risk of harm to self or others. Consequently, it is the opinion of the treatment team that the patient is at low risk of suicide and does not meet criteria to continue an involuntary psychiatric hold. Estimation of Imminent Risk: Low due to the above explanation. Determination of Level of Care based on Suicide Risk: Outpatient follow-up. Narrative description of clinical reasoning. (This must be completed on all patients): . Plan and Interventions based on Suicide Risk: This patient will likely be stepped down to an outpatient mental health center in the community upon discharge and follow-up within 7 days of her discharge from the hospital. VII. Discharge/After Hours Support Plan: Patient can return back to the ER, call 911 or crisis line if symptoms of depression, anxiety, suicidality return. Recommendation/Plan: Rescind 1013. Continue Paxil 10 mg PO daily for depression and Klonopin 0.5 mg BID for anxiety. Discussed possible suicidality/medication induced flower with patient reference Paxil. Discussed with the patient the importance to take medication as prescribed. The patient has a scheduled outpatient appt with her psychiatrist Dr Edge at [facility] 19 Jun 2017.
--- NOTE | 2017-06-15 13:08 | Discharge Summary ---
Providers - Providers Date of Admission: 06/10/17 06:16 Date of discharge: 06/15/17 Attending physician: CESAR TRINIDAD 06/10/17 00:37 Consult to Physician [CONS] Urgent Consulting Provider: DILLON THAPA Reason For Exam: ams Notified:: yes 06/11/17 13:54 Consult to Physician [CONS] Routine Consulting Provider: SHAWN THRASHER Reason For Exam: drug overdose Place consult to:: mental health /ANNIE Notified:: ANNIE Phone number called:: [phone] Was contact made?: Yes If yes, spoke with:: ANNIE Time called:: 14:04 06/12/17 14:30 Consult to Mental Health [CONS] Urgent Reason For Exam: Drug Overdose Place consult to:: Mental Health Notified:: Yes Phone number called:: [phone] Was contact made?: Yes If yes, spoke with:: Annie Time called:: 14:28 Primary care physician: FRACTIONATION SUPERVISOR Hospitalization Condition: Critical Hospital course: Brief history: 32-year-old woman with unknown medical problems brought to the emergency room because she was found at home unresponsive. She was brought to the emergency room his possible drug overdose and was intubated. The patient has a scheduled outpatient appt with her psychiatrist Dr Edge at [facility] 19 Jun 2017. Discharge Diagnosis and management: Acute Respiratory failure required intubation - likely from drug overdose - s/p extubation 06/11/17, Acute toxic encephalopathy - mental status at baseline now Possible drug overdose with SI - Consult mental health, placed on 1013 H/o depression - placed on paxil Acute bronchitis - started on zithromax General: Diet: regular DVT prophylaxis: lovenox GI prophylaxis: PPI Functional status: ambulate as tolerated Disposition: inpt psych, pt is medically stable Hospitalist Physical exam: GENERAL: well-developed and well-nourished female lying on bed appeared to be in no discomfort. HEENT: Normocephalic. Atraumatic. No conjunctival congestion or icterus. Patient has moist mucous membranes. NECK: Supple. Trachea midline. CHEST/LUNGS: Clear to auscultated bilaterally, breathing nonlabored. No wheezes crackles or rhonchi. HEART/CARDIOVASCULAR: Regular in rate and rhythm. S1 and S2 positive. ABDOMEN: Abdomen is soft, nontender. Patient has normal bowel sounds. SKIN: There is no rash. Warm and dry. NEURO: No focal motor deficit. Follows command. MUSCULOSKELETAL: No joint effusion or tenderness. EXTRIMITY: No edema, no cyanosis or clubbing. PSYCH: appears very depressed. Disposition: DC-01 TO HOME OR SELFCARE Time spent for discharge: 32 minutes Exam - Constitutional Vitals: Temp Pulse Resp BP Pulse Ox 98.7 F 94 H 22 106/62 97 06/15/17 07:53 06/15/17 07:53 06/15/17 07:53 06/15/17 07:53 06/15/17 07:53 Plan Activity: advance as tolerated Weight Bearing Status: Weight Bear as Tolerated Diet: regular Follow up with: PRIMARY CARE,MD [Primary Care Provider] - 3-5 Days Prescriptions: Azithromycin [Zithromax] 250 mg PO DAILY #5 tablet clonazePAM [KlonoPIN] 0.5 mg PO BID #30 tablet PARoxetine [Paxil] 10 mg PO QDAY #14 tablet
[2017-06-15] MEDS ORDERED: ZITHROMAX PO SCH (14:00)
[2017-06-15] MEDS ORDERED: Fluarix Quad 2017-2018(36 MOS+ IM ONE (14:11)
[2017-06-15 16:22] VITALS: BP 116/77
== END 2017-06-15 16:45 | disposition home or self-care (01) | DRG 917 ==
LOC: ED 23:03 → EEVIPCON 23:03 → CC1 06-10 06:16 → 3A 06-11 13:18
PROVIDERS: ADMIT Internal Medicine; ATTEND Internal Medicine
PROC: 4A033R1 Measurement of Arterial Saturation, Peripheral, Percutaneous Approach (ICD-10-PCS; 2017-06-10)
PROC: 5A1945Z Respiratory Ventilation, 24-96 Consecutive Hours (ICD-10-PCS; 2017-06-10)
PROC: 0BH17EZ Insertion of Endotracheal Airway into Trachea, Via Natural or Artificial Opening (ICD-10-PCS; 2017-06-10)
PROC: 3E0234Z Introduction of Serum, Toxoid and Vaccine into Muscle, Percutaneous Approach (ICD-10-PCS; principal; 2017-06-15)
DX: T50.992A Poisoning by other drugs, medicaments and biological substances, intentional self-harm, initial encounter (principal); J96.01 Acute respiratory failure with hypoxia; G92 Toxic encephalopathy; F41.9 Anxiety disorder, unspecified; F32.9 Major depressive disorder, single episode, unspecified; E66.9 Obesity, unspecified; Z68.23 Body mass index [BMI] 23.0-23.9, adult; Y92.89 Other specified places as the place of occurrence of the external cause; Z23 Encounter for immunization
CPT/HCPCS: 36415; 70450; 71045; 72125; 74018; 80048; 80053; 80307; 80320; 82550; 82553; 82803; 83735; 84484; 84702; 85025; 85610; 90686; 93005; 93010; 94003; G0480; J1650; J2060; J2405; J2704; J3010; J7030; J7042

== ENCOUNTER 2017-07-01 22:42 | Emergency (ER) | payer SELFPAY ==
[2017-07-01] MEDS ORDERED: ASPIRIN PO ONE (23:36)
[2017-07-02 00:36] LABS: BUN/Creatinine Ratio 17; Basophils # (Auto) 0.1 K/mm3 (0.0-0.1); Basophils % (Auto) 0.8 % (0.0-1.8); Blood Urea Nitrogen 10 mg/dL (7-17); Calcium 8.8 mg/dL (8.4-10.2); Eosinophils # (Auto) 0.2 K/mm3 (0.0-0.4); Eosinophils % (Auto) 2.4 % (0.0-4.3); Hematocrit 39.3 % (30.3-42.9); Hemoglobin 13.2 gm/dl (10.1-14.3); Hemolysis Index 4; Lymphocytes # (Auto) 2.7 K/mm3 (1.2-5.4); Lymphocytes % (Auto) 30.9 % (13.4-35.0); Mean Corpuscular HGB Conc 34 % (30-34); Mean Corpuscular Hemoglobin 29 pg (28-32); Mean Corpuscular Volume 85 fl (79-97); Monocytes # (Auto) 0.7 K/mm3 (0.0-0.8); Monocytes % (Auto) 7.5 % (0.0-7.3); Platelet Count 287 K/mm3 (140-440); Red Blood Count 4.63 M/mm3 (3.65-5.03); Red Cell Distribution Width 13.6 % (13.2-15.2)
--- NOTE | 2017-07-02 02:21 | XRay Report ---
FINAL REPORT EXAM: XR CHEST ROUTINE 2V HISTORY: cp, cough TECHNIQUE: PA and lateral views of the chest were submitted. Comparison is made to the study of 06/11/2017. FINDINGS: At this time the lungs are clear. The heart size is normal. Pleural fluid is not seen. The skeletal structures appear normal. IMPRESSION: Normal chest.
[2017-07-02] MEDS ORDERED: BICILLIN L-A IM ONE (03:32)
[2017-07-02] MEDS ORDERED: MOTRIN PO ONE (03:32)
[2017-07-02] MEDS ORDERED: NORCO 5/325 PO ONE (03:32)
--- NOTE | 2017-07-02 04:38 | Emergency Department Report ---
- General Chief Complaint: Chest Pain Stated Complaint: CP Time Seen by Provider: 07/02/17 03:32 Source: patient Mode of arrival: Ambulatory Limitations: No Limitations - History of Present Illness Initial Comments: 32-year-old female presents to the hospital with complaints of cough and cold symptoms for several weeks. Patient started PMD on the . She had a positive strep test and was prescribed penicillin for strep throat, gentamicin eyedrops for right eye infection, and other medication. Patient turned in her medications in at [facility] pharmacy but apparently they would not be available until the . Patient came to the ER because her chest pain is worse with cough, her headache is worse with cough, and her right eye is sore with redness and discharge. No complaints of fever reported. Positive chills. Patient could not wait till Friday for treatment so presents to the ER. - Related Data Previous Rx's Medication Instructions Recorded Last Taken Type Azithromycin [Zithromax] 250 mg PO DAILY #5 tablet 06/15/17 Unknown Rx PARoxetine [Paxil] 10 mg PO QDAY #14 tablet 06/15/17 Unknown Rx clonazePAM [KlonoPIN] 0.5 mg PO BID #30 tablet 06/15/17 Unknown Rx Benzonatate [Tessalon Perles] 100 mg PO Q8HR PRN #30 capsule 07/02/17 Unknown Rx Gentamicin 0.3% Ophth Oint 1 applicatio OP Q4H 6 Days #1 tube 07/02/17 Unknown Rx HYDROcodone/APAP 5-325 [Big Indian 1 each PO Q6HR PRN #10 tablet 07/02/17 Unknown Rx 5/325] Ibuprofen [Motrin] 600 mg PO Q8H PRN #30 tablet 07/02/17 Unknown Rx Allergies Allergy/AdvReac Type Severity Reaction Status Date / Time No Known Allergies Allergy Verified 06/10/17 04:34 ED Review of Systems ROS: Stated complaint: CP Other details as noted in HPI Comment: All other systems reviewed and negative Other: Constitutional: Positive chills loss Eyes: Right eye redness, discharge with mild blurred vision ENT: Sore throat Neck: Denies pain Respiratory: Cough, intermittent wheezing Cardiovascular: Anterior chest wall pain GI: Denies abdominal pain, nausea, vomiting, diarrhea : Denies dysuria Musculoskeletal: Diffuse muscular skeletal pain Skin: Denies rash, lesions, erythema Neurologic: Denies, numbness, weakness Psychiatric: Denies suicidal ideation, hallucinations ED Past Medical Hx - Past Medical History Previous Medical History?: Yes - Surgical History Past Surgical History?: No - Social History Smoking Status: Never Smoker Substance Use Type: None - Medications Home Medications: Home Medications Medication Instructions Recorded Confirmed Last Taken Type Azithromycin [Zithromax] 250 mg PO DAILY #5 tablet 06/15/17 Unknown Rx PARoxetine [Paxil] 10 mg PO QDAY #14 tablet 06/15/17 Unknown Rx clonazePAM [KlonoPIN] 0.5 mg PO BID #30 tablet 06/15/17 Unknown Rx Benzonatate [Tessalon Perles] 100 mg PO Q8HR PRN #30 capsule 07/02/17 Unknown Rx Gentamicin 0.3% Ophth Oint 1 applicatio OP Q4H 6 Days #1 tube 07/02/17 Unknown Rx HYDROcodone/APAP 5-325 [Big Indian 1 each PO Q6HR PRN #10 tablet 07/02/17 Unknown Rx 5/325] Ibuprofen [Motrin] 600 mg PO Q8H PRN #30 tablet 07/02/17 Unknown Rx ED Physical Exam - General Limitations: No Limitations - Other Other exam information: General: No limitations, patient is alert in no acute distress Head exam: Atraumatic, normocephalic Eyes exam: Mild right conjunctiva erythema. No purulent drainage. Pupils equal reactive to light. Extraocular movements intact and not painful with movement ENT: Moist mucous membrane, normal oropharynx, no exudates Neck exam: Normal inspection, full range of motion, no meningismus nontender Respiratory exam: Clear to auscultation bilateral, no wheezes, rales, crackles Cardiovascular: Normal rate and rhythm, normal heart sounds, reproducible anterior chest wall tenderness Abdomen: Soft, nondistended, and nontender, with normal bowel sounds, no rebound, or guarding Extremity: Full range of motion normal inspection no deformity Back: Normal Inspection, full range of motion, no tenderness Neurologic: Alert, oriented x3, cranial nerves intact, no motor or sensory deficit Psychiatric: normal affect, normal mood Skin: Warm, dry, intact ED Course Vital Signs 07/01/17 07/02/17 07/02/17 23:28 02:00 02:03 Temperature 98.6 F 98.3 F Pulse Rate 73 80 72 Respiratory 18 14 17 Rate Blood Pressure 133/70 134/80 Blood Pressure 143/81 [Left] O2 Sat by Pulse 99 100 100 Oximetry 07/02/17 03:01 Temperature Pulse Rate Respiratory Rate Blood Pressure 134/80 Blood Pressure [Left] O2 Sat by Pulse 100 Oximetry - Reevaluation(s) Reevaluation #1: 07/02/17 04:38 Patient treated with Motrin, Bicillin LA IM, and Big Indian for pain ED Medical Decision Making - Lab Data Result diagrams: 07/01/17 00:00 07/01/17 00:00 Lab Results 07/01/17 07/01/17 07/01/17 Range/Units 00:00 00:00 00:00 WBC 8.8 (4.5-11.0) K/mm3 RBC 4.63 (3.65-5.03) M/mm3 Hgb 13.2 (10.1-14.3) gm/dl Hct 39.3 (30.3-42.9) % MCV 85 (79-97) fl MCH 29 (28-32) pg MCHC 34 (30-34) % RDW 13.6 (13.2-15.2) % Plt Count 287 (140-440) K/mm3 Lymph % (Auto) 30.9 (13.4-35.0) % Weber % (Auto) 7.5 H (0.0-7.3) % Eos % (Auto) 2.4 (0.0-4.3) % Baso % (Auto) 0.8 (0.0-1.8) % Lymph # 2.7 (1.2-5.4) K/mm3 Weber # 0.7 (0.0-0.8) K/mm3 Eos # 0.2 (0.0-0.4) K/mm3 Baso # 0.1 (0.0-0.1) K/mm3 Seg Neutrophils % 58.4 (40.0-70.0) % Seg Neutrophils # 5.1 (1.8-7.7) K/mm3 Sodium 138 (137-145) mmol/L Potassium 3.8 (3.6-5.0) mmol/L Chloride 99.5 (98-107) mmol/L Carbon Dioxide 28 (22-30) mmol/L Anion Gap 14 mmol/L BUN 10 (7-17) mg/dL Creatinine 0.6 L (0.7-1.2) mg/dL Estimated GFR > 60 ml/min BUN/Creatinine Ratio 17 % Glucose 101 H (65-100) mg/dL Calcium 8.8 (8.4-10.2) mg/dL Troponin T < 0.010 (0.00-0.029) ng/mL HCG, Qual Negative (Negative) 07/02/17 Range/Units 02:44 WBC (4.5-11.0) K/mm3 RBC (3.65-5.03) M/mm3 Hgb (10.1-14.3) gm/dl Hct (30.3-42.9) % MCV (79-97) fl MCH (28-32) pg MCHC (30-34) % RDW (13.2-15.2) % Plt Count (140-440) K/mm3 Lymph % (Auto) (13.4-35.0) % Weber % (Auto) (0.0-7.3) % Eos % (Auto) (0.0-4.3) % Baso % (Auto) (0.0-1.8) % Lymph # (1.2-5.4) K/mm3 Weber # (0.0-0.8) K/mm3 Eos # (0.0-0.4) K/mm3 Baso # (0.0-0.1) K/mm3 Seg Neutrophils % (40.0-70.0) % Seg Neutrophils # (1.8-7.7) K/mm3 Sodium (137-145) mmol/L Potassium (3.6-5.0) mmol/L Chloride (98-107) mmol/L Carbon Dioxide (22-30) mmol/L Anion Gap mmol/L BUN (7-17) mg/dL Creatinine (0.7-1.2) mg/dL Estimated GFR ml/min BUN/Creatinine Ratio % Glucose (65-100) mg/dL Calcium (8.4-10.2) mg/dL Troponin T < 0.010 (0.00-0.029) ng/mL HCG, Qual (Negative) - Radiology Data Radiology results: report reviewed Read by radiologist Chest x-ray: No acute findings - Medical Decision Making Patient received Bicillin in the ED for recently diagnosed strep throat. Gentamicin drops will be represcribed the patient encouraged to try another pharmacy. Other medication for generalized body aches will be prescribed. Outpatient follow-up will be encouraged. Patient expressed concerns that during her last admission she was informed there was abnormality or prolonged chest x-ray. Previous record was reviewed. Patient was intubated at that time which was thought to be due to a suicide attempt but patient denies. She had right mainstem intubation with associated left lung atelectasis and then she had some mild right upper lung atelectasis. These have both resolved on today's x-ray. - Differential Diagnosis pneumonia, bronchitis, URI, conjunctivitis, pharyngitis Critical Care Time: No Critical care attestation.: If time is entered above; I have spent that time in minutes in the direct care of this critically ill patient, excluding procedure time. ED Disposition Clinical Impression: Strep pharyngitis, URI (upper respiratory infection), Conjunctivitis Disposition: TO HOME OR SELFCARE Is pt being admited?: No Does the pt Need Aspirin: No Condition: Stable Instructions: Strep Throat (ED), Conjunctivitis (ED), Upper Respiratory Infection (ED) Additional Instructions: Take the medication as prescribed. Follow up with your doctor. Return if symptoms worsen Prescriptions: Benzonatate [Tessalon Perles] 100 mg PO Q8HR PRN #30 capsule PRN Reason: Cough Gentamicin 0.3% Ophth Oint 1 applicatio OP Q4H 6 Days #1 tube HYDROcodone/APAP 5-325 [Big Indian 5/325] 1 each PO Q6HR PRN #10 tablet PRN Reason: Pain Ibuprofen [Motrin] 600 mg PO Q8H PRN #30 tablet PRN Reason: Pain Referrals: NIKHIL MOSHER MD [Primary Care Provider] - 3-5 Days [facility] [Provider Group] - 3-5 Days Print Language: UPPER SORBIAN
[2017-07-02] MEDS ORDERED: ALUM-MAG HYDROX-SIMETH 200-200-20MG/5ML PO ONE (05:12)
[2017-07-02 05:26] VITALS: BP 107/69
== END 2017-07-02 05:27 | disposition home or self-care (01) ==
LOC: ED 22:42
DX: J06.9 Acute upper respiratory infection, unspecified (principal); J02.0 Streptococcal pharyngitis; H10.9 Unspecified conjunctivitis
CPT/HCPCS: 36415; 71046; 80048; 84484; 84703; 85025; 93005; 93010; 96372; 99284; J0561

== ENCOUNTER 2017-10-15 22:54 | Emergency (ER) | payer OTHER ==
[2017-10-15] MEDS ORDERED: ATIVAN IM PRN (23:05)
[2017-10-15] MEDS ORDERED: HALDOL IM PRN (23:05)
--- NOTE | 2017-10-15 23:06 | Emergency Department Report ---
ED General Adult HPI - General Chief complaint: Overdose Stated complaint: OVERDOSE Time Seen by Provider: 10/15/17 23:04 Source: patient, EMS (verbal verbal reports received from EMS.ems notes not available at time of chart dictation) Mode of arrival: Stretcher Limitations: No Limitations - History of Present Illness Initial comments: This is a 32-year-old female previously unknown to this provider, who is brought to the hospital by EMS for evaluation after concern for possible suicide attempt. As per verbal report from EMS, patient was found sleeping in bed, very somnolent, after suspected overdose for multiple benzodiazepines and suspected medications. Patient does not know what time she allegedly took the medicines. EMS reported that patient was somnolent and required Romazicon for symptom improvement. Upon arrival to the ER, the patient was tearful, and reported that she took 2 tablets of one of her benzodiazepines to help her sleep. She denies headache, neck pain, chest pain, abdominal pain, shortness of breath, and she currently denies homicidality and suicidality. The patient reports that she was very upset because she found a picture of her significant other with another female. -: This evening Improves with: none Worsens with: none Associated Symptoms: denies other symptoms. denies: confusion, chest pain, cough, diaphoresis, fever/chills, headaches, loss of appetite, malaise, nausea/ vomiting, rash, seizure, shortness of breath, syncope, weakness - Related Data Previous Rx's Medication Instructions Recorded Last Taken Type Azithromycin [Zithromax] 250 mg PO DAILY #5 tablet 06/15/17 Unknown Rx PARoxetine [Paxil] 10 mg PO QDAY #14 tablet 06/15/17 Unknown Rx clonazePAM [KlonoPIN] 0.5 mg PO BID #30 tablet 06/15/17 Unknown Rx Benzonatate [Tessalon Perles] 100 mg PO Q8HR PRN #30 capsule 07/02/17 Unknown Rx Gentamicin 0.3% Ophth Oint 1 applicatio OP Q4H 6 Days #1 tube 07/02/17 Unknown Rx HYDROcodone/APAP 5-325 [[place] 1 each PO Q6HR PRN #10 tablet 07/02/17 Unknown Rx 5/325] Ibuprofen [Motrin] 600 mg PO Q8H PRN #30 tablet 07/02/17 Unknown Rx Allergies Allergy/AdvReac Type Severity Reaction Status Date / Time No Known Allergies Allergy Verified 06/10/17 04:34 ED Review of Systems ROS: Stated complaint: OVERDOSE Other details as noted in HPI Comment: All other systems reviewed and negative ED Past Medical Hx - Social History Smoking Status: Never Smoker Substance Use Type: None - Medications Home Medications: Home Medications Medication Instructions Recorded Confirmed Last Taken Type Azithromycin [Zithromax] 250 mg PO DAILY #5 tablet 06/15/17 Unknown Rx PARoxetine [Paxil] 10 mg PO QDAY #14 tablet 06/15/17 Unknown Rx clonazePAM [KlonoPIN] 0.5 mg PO BID #30 tablet 06/15/17 Unknown Rx Benzonatate [Tessalon Perles] 100 mg PO Q8HR PRN #30 capsule 07/02/17 Unknown Rx Gentamicin 0.3% Ophth Oint 1 applicatio OP Q4H 6 Days #1 tube 07/02/17 Unknown Rx HYDROcodone/APAP 5-325 [[place] 1 each PO Q6HR PRN #10 tablet 07/02/17 Unknown Rx 5/325] Ibuprofen [Motrin] 600 mg PO Q8H PRN #30 tablet 07/02/17 Unknown Rx ED Physical Exam - General Limitations: No Limitations General appearance: alert, anxious, in distress - Head Head exam: Present: atraumatic, normocephalic - Eye Eye exam: Present: normal appearance, EOMI, other (visual acuity intact to finger counting, color perception, reading at a close distance). Absent: nystagmus - ENT ENT exam: Present: normal exam, normal orophraynx, mucous membranes moist, normal external ear exam - Neck Neck exam: Present: normal inspection, full ROM - Respiratory Respiratory exam: Present: normal lung sounds bilaterally. Absent: respiratory distress - Cardiovascular Cardiovascular Exam: Present: regular rate, normal rhythm, normal heart sounds. Absent: bradycardia, tachycardia, irregular rhythm, systolic murmur, diastolic murmur, rubs, gallop - GI/Abdominal GI/Abdominal exam: Present: soft, normal bowel sounds. Absent: distended, tenderness, guarding, rebound, rigid, pulsatile mass - Extremities Exam Extremities exam: Present: normal inspection, full ROM, normal capillary refill. Absent: pedal edema, joint swelling, calf tenderness - Back Exam Back exam: Present: normal inspection, full ROM. Absent: tenderness, CVA tenderness (R), paraspinal tenderness, vertebral tenderness - Neurological Exam Neurological exam: Present: alert, oriented X3, CN II-XII intact, other ( Extraocular movements intact. Tongue midline. No facial droop. Facial sensation intact to light touch in the V1, V2, V3 distribution bilaterally. 5 and 5 strength in 4 extremities.. Sensation is intact to light touch in 4 extremities.). Absent: motor sensory deficit - Psychiatric Psychiatric exam: Present: anxious. Absent: homicidal ideation - Skin Skin exam: Present: warm, dry, intact, normal color. Absent: rash ED Course Vital Signs 10/15/17 10/15/17 10/15/17 22:59 23:00 23:16 Temperature Pulse Rate 93 H 99 H 82 Respiratory 9 L 9 L 17 Rate Blood Pressure 143/103 O2 Sat by Pulse 99 100 100 Oximetry 10/15/17 10/15/17 10/15/17 23:19 23:30 23:32 Temperature Pulse Rate 82 82 79 Respiratory 13 12 20 Rate Blood Pressure 143/103 123/83 123/83 O2 Sat by Pulse 100 98 99 Oximetry 10/15/17 10/15/17 10/16/17 23:39 23:46 00:00 Temperature 98.3 F Pulse Rate 80 77 88 Respiratory 14 19 16 Rate Blood Pressure 123/72 123/83 128/65 O2 Sat by Pulse 100 97 96 Oximetry 10/16/17 10/16/17 10/16/17 00:16 00:30 00:45 Temperature Pulse Rate 75 81 Respiratory 21 14 16 Rate Blood Pressure 128/65 106/77 O2 Sat by Pulse 97 98 100 Oximetry 10/16/17 10/16/17 10/16/17 00:46 01:00 01:16 Temperature Pulse Rate 75 67 63 Respiratory 26 H 19 19 Rate Blood Pressure 106/77 113/80 113/80 O2 Sat by Pulse 96 96 96 Oximetry 10/16/17 10/16/17 10/16/17 01:30 01:46 02:00 Temperature Pulse Rate 66 69 78 Respiratory 21 21 19 Rate Blood Pressure 109/70 109/70 112/74 O2 Sat by Pulse 95 96 96 Oximetry 10/16/17 10/16/17 10/16/17 02:16 02:30 02:46 Temperature Pulse Rate 70 74 72 Respiratory 16 17 17 Rate Blood Pressure 112/74 106/64 106/64 O2 Sat by Pulse 96 95 93 Oximetry 10/16/17 10/16/17 10/16/17 03:00 03:16 03:30 Temperature Pulse Rate 72 73 72 Respiratory 17 17 16 Rate Blood Pressure 102/64 102/64 95/57 O2 Sat by Pulse 94 95 96 Oximetry 10/16/17 10/16/17 10/16/17 03:46 04:00 04:16 Temperature Pulse Rate 73 72 69 Respiratory 18 15 15 Rate Blood Pressure 95/57 104/61 104/61 O2 Sat by Pulse 96 95 97 Oximetry 10/16/17 04:35 Temperature Pulse Rate 95 H Respiratory 14 Rate Blood Pressure O2 Sat by Pulse 98 Oximetry - Reevaluation(s) Reevaluation #1: 10/16/17 04:06 Patient has been observed in the ER for over 5 hours without clinical decompensation. Respiratory status appears to be stable at this point. We will continue to observe. Reevaluation #2: 10/16/17 05:04 Patient has been observed in the ER for over 6 hours without clinical decompensation. She has not had up respiratory decompensation. At this point in time, there is not appear to be an immediate medical contraindication to psychiatric admission, evaluation, consultation. ED Medical Decision Making - Lab Data Result diagrams: 10/15/17 23:34 10/15/17 23:34 Vital Signs 10/15/17 10/15/17 10/15/17 22:59 23:00 23:16 Temperature Pulse Rate 93 H 99 H 82 Respiratory 9 L 9 L 17 Rate Blood Pressure 143/103 O2 Sat by Pulse 99 100 100 Oximetry 10/15/17 10/15/17 10/15/17 23:19 23:30 23:32 Temperature Pulse Rate 82 82 79 Respiratory 13 12 20 Rate Blood Pressure 143/103 123/83 123/83 O2 Sat by Pulse 100 98 99 Oximetry 10/15/17 10/15/17 10/16/17 23:39 23:46 00:00 Temperature 98.3 F Pulse Rate 80 77 88 Respiratory 14 19 16 Rate Blood Pressure 123/72 123/83 128/65 O2 Sat by Pulse 100 97 96 Oximetry 10/16/17 10/16/17 10/16/17 00:16 00:30 00:45 Temperature Pulse Rate 75 81 Respiratory 21 14 16 Rate Blood Pressure 128/65 106/77 O2 Sat by Pulse 97 98 100 Oximetry Lab Results 10/15/17 10/15/17 10/15/17 Range/Units 23:34 23:34 23:34 WBC 9.3 (4.5-11.0) K/mm3 RBC 4.78 (3.65-5.03) M/mm3 Hgb 13.7 (10.1-14.3) gm/dl Hct 40.3 (30.3-42.9) % MCV 84 (79-97) fl MCH 29 (28-32) pg MCHC 34 (30-34) % RDW 13.7 (13.2-15.2) % Plt Count 254 (140-440) K/mm3 PT 12.0 L (12.2-14.9) Sec. INR 0.85 L (0.87-1.13) Sodium 139 (137-145) mmol/L Potassium 3.7 (3.6-5.0) mmol/L Chloride 100.0 (98-107) mmol/L Carbon Dioxide 27 (22-30) mmol/L Anion Gap 16 mmol/L BUN 12 (7-17) mg/dL Creatinine 0.5 L (0.7-1.2) mg/dL Estimated GFR > 60 ml/min BUN/Creatinine Ratio 24 % Glucose 96 (65-100) mg/dL Calcium 9.1 (8.4-10.2) mg/dL Total Bilirubin 0.30 (0.1-1.2) mg/dL AST 23 (5-40) units/L ALT 28 (7-56) units/L Alkaline Phosphatase 79 (35-129) units/L Total Protein 7.6 (6.3-8.2) g/dL Albumin 4.4 (3.9-5) g/dL Albumin/Globulin Ratio 1.4 % HCG, Quant (0-4) mIU/mL Urine Color (Yellow) Urine Turbidity (Clear) Urine pH (5.0-7.0) Ur Specific [place] (1.003-1.030) Urine Protein (Negative) mg/dL Urine Glucose (UA) (Negative) mg/dL Urine Ketones (Negative) mg/dL Urine Blood (Negative) Urine Nitrite (Negative) Urine Bilirubin (Negative) Urine Urobilinogen (<2.0) mg/dL Ur Leukocyte Esterase (Negative) Urine WBC (Auto) (0.0-6.0) /HPF Urine RBC (Auto) (0.0-6.0) /HPF U Epithel Cells (Auto) (0-13.0) /HPF Urine Bacteria (Auto) (Negative) /HPF Salicylates (2.8-20.0) mg/dL Urine Opiates Screen Urine Methadone Screen Acetaminophen (10.0-30.0) ug/mL Ur Barbiturates Screen Ur Phencyclidine Scrn Ur Amphetamines Screen U Benzodiazepines Scrn Urine Cocaine Screen U Marijuana (THC) Screen Drugs of Abuse Note Plasma/Serum Alcohol (0-0.07) % 10/15/17 10/15/17 10/15/17 Range/Units 23:34 23:34 23:34 WBC (4.5-11.0) K/mm3 RBC (3.65-5.03) M/mm3 Hgb (10.1-14.3) gm/dl Hct (30.3-42.9) % MCV (79-97) fl MCH (28-32) pg MCHC (30-34) % RDW (13.2-15.2) % Plt Count (140-440) K/mm3 PT (12.2-14.9) Sec. INR (0.87-1.13) Sodium (137-145) mmol/L Potassium (3.6-5.0) mmol/L Chloride (98-107) mmol/L Carbon Dioxide (22-30) mmol/L Anion Gap mmol/L BUN (7-17) mg/dL Creatinine (0.7-1.2) mg/dL Estimated GFR ml/min BUN/Creatinine Ratio % Glucose (65-100) mg/dL Calcium (8.4-10.2) mg/dL Total Bilirubin (0.1-1.2) mg/dL AST (5-40) units/L ALT (7-56) units/L Alkaline Phosphatase (35-129) units/L Total Protein (6.3-8.2) g/dL Albumin (3.9-5) g/dL Albumin/Globulin Ratio % HCG, Quant < 2 (0-4) mIU/mL Urine Color (Yellow) Urine Turbidity (Clear) Urine pH (5.0-7.0) Ur Specific [place] (1.003-1.030) Urine Protein (Negative) mg/dL Urine Glucose (UA) (Negative) mg/dL Urine Ketones (Negative) mg/dL Urine Blood (Negative) Urine Nitrite (Negative) Urine Bilirubin (Negative) Urine Urobilinogen (<2.0) mg/dL Ur Leukocyte Esterase (Negative) Urine WBC (Auto) (0.0-6.0) /HPF Urine RBC (Auto) (0.0-6.0) /HPF U Epithel Cells (Auto) (0-13.0) /HPF Urine Bacteria (Auto) (Negative) /HPF Salicylates < 0.3 L (2.8-20.0) mg/dL Urine Opiates Screen Urine Methadone Screen Acetaminophen < 5.0 L (10.0-30.0) ug/mL Ur Barbiturates Screen Ur Phencyclidine Scrn Ur Amphetamines Screen U Benzodiazepines Scrn Urine Cocaine Screen U Marijuana (THC) Screen Drugs of Abuse Note Plasma/Serum Alcohol (0-0.07) % 10/15/17 10/15/17 10/15/17 Range/Units 23:34 23:38 23:38 WBC (4.5-11.0) K/mm3 RBC (3.65-5.03) M/mm3 Hgb (10.1-14.3) gm/dl Hct (30.3-42.9) % MCV (79-97) fl MCH (28-32) pg MCHC (30-34) % RDW (13.2-15.2) % Plt Count (140-440) K/mm3 PT (12.2-14.9) Sec. INR (0.87-1.13) Sodium (137-145) mmol/L Potassium (3.6-5.0) mmol/L Chloride (98-107) mmol/L Carbon Dioxide (22-30) mmol/L Anion Gap mmol/L BUN (7-17) mg/dL Creatinine (0.7-1.2) mg/dL Estimated GFR ml/min BUN/Creatinine Ratio % Glucose (65-100) mg/dL Calcium (8.4-10.2) mg/dL Total Bilirubin (0.1-1.2) mg/dL AST (5-40) units/L ALT (7-56) units/L Alkaline Phosphatase (35-129) units/L Total Protein (6.3-8.2) g/dL Albumin (3.9-5) g/dL Albumin/Globulin Ratio % HCG, Quant (0-4) mIU/mL Urine Color Straw (Yellow) Urine Turbidity Clear (Clear) Urine pH 8.0 H (5.0-7.0) Ur Specific [place] 1.004 (1.003-1.030) Urine Protein <15 mg/dl (Negative) mg/dL Urine Glucose (UA) Neg (Negative) mg/dL Urine Ketones Neg (Negative) mg/dL Urine Blood Neg (Negative) Urine Nitrite Neg (Negative) Urine Bilirubin Neg (Negative) Urine Urobilinogen < 2.0 (<2.0) mg/dL Ur Leukocyte Esterase Sm (Negative) Urine WBC (Auto) 2.0 (0.0-6.0) /HPF Urine RBC (Auto) 2.0 (0.0-6.0) /HPF U Epithel Cells (Auto) 1.0 (0-13.0) /HPF Urine Bacteria (Auto) 2+ (Negative) /HPF Salicylates (2.8-20.0) mg/dL Urine Opiates Screen Presumptive negative Urine Methadone Screen Presumptive negative Acetaminophen (10.0-30.0) ug/mL Ur Barbiturates Screen Presumptive negative Ur Phencyclidine Scrn Presumptive negative Ur Amphetamines Screen Presumptive negative U Benzodiazepines Scrn Presumptive positive Urine Cocaine Screen Presumptive negative U Marijuana (THC) Screen Presumptive negative Drugs of Abuse Note Disclamer Plasma/Serum Alcohol < 0.01 (0-0.07) % - EKG Data -: EKG Interpreted by [place] EKG shows normal: sinus rhythm, axis, intervals, QRS complexes, ST-T waves - EKG Data When compared to previous EKG there are: previous EKG unavailable 10/16/17 01:09 Normal sinus, 87 beats per minute, borderline left axis, low voltage, abnormal EKG, QTC 440 ms, QT interval 336 ms, RI interval 142 ms - Medical Decision Making Differential diagnosis, including without limited to: Mood disorder, overdose, suicidality, medical clearance for psychiatric placement Assessment and plan: 32-year-old female who is suspected to have overdosed on multiple benzodiazepines with somnolence in the field requiring benzodiazepine reversal. The patient is placed on a 1013 and a secured entrance monitor. She is clinically sober at this time, with a GCS of 15, with an NIH score of 0. We do not know her last known time of ingestion, and given her somnolence in the field , in my opinion is not appropriate for charcoal therapy. Laboratory studies were unremarkable her vital signs have been stable thus far, and she has been interviewed by psychiatry at this time. We will discuss with the [place] [facility], and observe the patient for at least 6-8 hours in the emergency room on a secured entrance monitor before clearing her for psychiatric evaluation. Critical care attestation.: If time is entered above; I have spent that time in minutes in the direct care of this critically ill patient, excluding procedure time. ED Disposition Clinical Impression: Overdose, Medical clearance for psychiatric admission Disposition: [id number] PSY HOSP/PSY UNIT Is pt being admited?: No Does the pt Need Aspirin: No Condition: Good Referrals: PRIMARY CARE, [Primary Care Provider] - 3-5 Days
[2017-10-15 23:52] LABS: Hematocrit 40.3 % (30.3-42.9); Hemoglobin 13.7 gm/dl (10.1-14.3); Mean Corpuscular HGB Conc 34 % (30-34); Mean Corpuscular Hemoglobin 29 pg (28-32); Mean Corpuscular Volume 84 fl (79-97); Platelet Count 254 K/mm3 (140-440); Red Blood Count 4.78 M/mm3 (3.65-5.03); Red Cell Distribution Width 13.7 % (13.2-15.2)
[2017-10-16 00:01] LABS: Bacteria,Urine 2+ /HPF (Negative); Bilirubin,Urine NEG (Negative); Blood,Urine NEG (Negative); Color,Urine Straw (Yellow); Protein,Urine <15 mg/dL mg/dL (Negative); Urobilinogen,Urine < 2.0 mg/dL (<2.0)
[2017-10-16 00:05] LABS: INR 0.85 (0.87-1.13)
[2017-10-16 00:08] LABS: Amphetamine Screen,Urine PRESUMPTIVE NEGATIVE; Cannabinoid Screen,Urine PRESUMPTIVE NEGATIVE; Cocaine Screen,Urine PRESUMPTIVE NEGATIVE; Methadone Screen,Urine PRESUMPTIVE NEGATIVE; Opiate Screen,Urine PRESUMPTIVE NEGATIVE
[2017-10-16 00:16] LABS: Alanine Aminotransferase 28 units/L (7-56); Albumin 4.4 g/dL (3.9-5); BUN/Creatinine Ratio 24; Blood Urea Nitrogen 12 mg/dL (7-17); Calcium 9.1 mg/dL (8.4-10.2); Hemolysis Index 19
[2017-10-16 00:26] LABS: Benzodiazepines Screen,Urine PRESUMPTIVE POSITIVE
--- NOTE | 2017-10-16 15:52 | Consultation ---
History of Present Illness - Reason for Consult Consult date: 10/16/17 Reason for consult: Mental Health Evaluation Requesting physician: NIKHIL JUNG - Chief Complaint Chief complaint: "I didn't overdose" - History of Present Psychiatric Illness 32-year-old female presenting to the ER for possible suicide attempt. This patient is known to me. Today the patient is calm and cooperative during the assessment. She was admitted to [facility] for similar actions in the past. She stated that she got into an argument with her because she found a picture of him with another woman. She stated that she got upset and her gave her 2 Xanax pills. Per the patient, she became "very sleepy." She stated that her could not wake her, so he called EMS. She is adamant that she didn't try to kill herself. She denies SI/HI's and AVH's. She denies erratic sleep and a poor appetite. She denies any manic episodes in the past. She denies recreational drug use and alcohol consumption (etoh). She stated a hx of depression. Medications and Allergies Allergies Allergy/AdvReac Type Severity Reaction Status Date / Time No Known Allergies Allergy Verified 06/10/17 04:34 Home Medications Medication Instructions Recorded Confirmed Last Taken Type Azithromycin [Zithromax] 250 mg PO DAILY #5 tablet 06/15/17 Unknown Rx PARoxetine [Paxil] 10 mg PO QDAY #14 tablet 06/15/17 Unknown Rx clonazePAM [KlonoPIN] 0.5 mg PO BID #30 tablet 06/15/17 Unknown Rx Benzonatate [Tessalon Perles] 100 mg PO Q8HR PRN #30 capsule 07/02/17 Unknown Rx Gentamicin 0.3% Ophth Oint 1 applicatio OP Q4H 6 Days #1 tube 07/02/17 Unknown Rx HYDROcodone/APAP 5-325 [[place] 1 each PO Q6HR PRN #10 tablet 07/02/17 Unknown Rx 5/325] Ibuprofen [Motrin] 600 mg PO Q8H PRN #30 tablet 07/02/17 Unknown Rx ALPRAZolam [Xanax TAB] 0.25 mg PO DAILY PRN 10/16/17 10/16/17 10/15/17 History Buspirone HCl 30 mg PO BID 10/16/17 10/16/17 Unknown History Flurazepam HCl 30 mg PO QHS 10/16/17 10/16/17 10/15/17 History Nefazodone HCl [Nefazodone] 100 mg PO BID 10/16/17 10/16/17 Unknown History Active Meds: Active Medications Haloperidol Lactate (Haldol) 5 mg IM Q6HR PRN PRN Reason: Agitation Lorazepam (Ativan) 2 mg IM Q4HR PRN PRN Reason: Agitation Past psychiatric history - Past Medical History Past Medical History: No medical history Past Surgical History: No surgical history - past Psychiatric treatment and history Psych: Depression psychiatric treatment history: Hx of depression. Denies a fam psy hx. - Social History Social history: lives with family Mental Status Exam - Vital signs Last Vital Signs Temp 97.3 F L 10/16/17 13:42 Pulse 101 H 10/16/17 13:42 Resp 18 10/16/17 13:42 BP 143/93 10/16/17 13:42 Pulse Ox 99 10/16/17 13:42 - Exam Narrative exam: MSE: Appearance: calm, cooperative Behavior: regular eye contact Speech: regular rate and tone Mood: "okay" Affect: congruent to mood Thought Process: circumstantial Thought Content: denies SI/HI's and AVH's Motor Activity: lying in bed Cognition: A/O x 3 Insight: variable Judgment: variable Results Result Diagrams: 10/15/17 23:34 10/15/17 23:34 Abnormal lab results 10/15/17 10/15/17 10/15/17 Range/Units 23:34 23:34 23:34 PT 12.0 L (12.2-14.9) Sec. INR 0.85 L (0.87-1.13) Creatinine 0.5 L (0.7-1.2) mg/dL Urine pH (5.0-7.0) Salicylates < 0.3 L (2.8-20.0) mg/dL Acetaminophen (10.0-30.0) ug/mL 10/15/17 10/15/17 Range/Units 23:34 23:38 PT (12.2-14.9) Sec. INR (0.87-1.13) Creatinine (0.7-1.2) mg/dL Urine pH 8.0 H (5.0-7.0) Salicylates (2.8-20.0) mg/dL Acetaminophen < 5.0 L (10.0-30.0) ug/mL All other labs normal. Assessment and Plan Assessment and plan: Impression: Hx of Depression per the patient. Today the patient is calm and cooperative during the assessment. The patient was positive for benzos. Recommendation/Plan: Continue 1013 and gather collateral information to help determine proper treatment and dispo. Monitor the patient for benzos withdrawals.
--- NOTE | 2017-10-17 11:33 | Progress Note ---
Subjective - Reason for Consult Consult date: 10/17/17 Reason for consult: Psychiatry Follow-up - Chief Complaint Chief complaint: "I am not suicidal" 32-year-old female presenting to the ER for possible suicide attempt. This patient is known to me. Today the patient is calm and cooperative during the assessment. She was admitted to [facility] for similar actions in the past. Per collateral from her Gildardo Saleh at [phone], he stated that his didn't try to kill herself. He stated that they argued and she became anxious, so he gave her a Xanax and a sleeping pill. He stated after a couple hours his ask him to call 911 because she didn't feel well after taking the medications. The patient stated that she has a psychiatrist (Dr Edge) for outpatient psy services. This was confirmed by her . The patient denies SI/HI's and AVH's. Mental Status Exam - Vital signs Last Vital Signs Temp 98.1 F 10/16/17 20:05 Pulse 119 H 10/16/17 20:05 Resp 18 10/17/17 10:00 BP 131/94 10/16/17 20:05 Pulse Ox 97 10/16/17 20:05 - Exam Narrative exam: MSE: Appearance: calm, cooperative Behavior: regular eye contact Speech: regular rate and tone Mood: "okay" Affect: congruent to mood Thought Process: linear Thought Content: denies SI/HI's and AVH's Motor Activity:ambulatory Cognition: A/O x 3 Insight: appropriate Judgment: appropriate Assessment and Plan Impression: Hx of Depression per the patient. Today the patient is calm and cooperative during the assessment. Unintentional overdose. The patient is no threat to self. Recommendation/Plan: Rescind 1013. Discussed the importance to take medication as prescribed with the patient. The patient can follow up with her psychiatrist Dr Edge for outpatient psy services.
--- NOTE | 2017-10-17 18:14 | Event Note ---
Date: 10/17/17 The patient has been cleared by psychiatry to go home. Her 1013 has been rescinded. The patient indicates that she is sorry. She continues to endorse that she is not homicidal or suicidal. She has outpatient follow-up with her psychiatrist next week. She will be discharged at this time. Vital Signs 10/15/17 10/15/17 10/15/17 22:59 23:00 23:16 Temperature Pulse Rate 93 H 99 H 82 Respiratory 9 L 9 L 17 Rate Blood Pressure 143/103 Blood Pressure [Left] O2 Sat by Pulse 99 100 100 Oximetry 10/15/17 10/15/17 10/15/17 23:19 23:30 23:32 Temperature Pulse Rate 82 82 79 Respiratory 13 12 20 Rate Blood Pressure 143/103 123/83 123/83 Blood Pressure [Left] O2 Sat by Pulse 100 98 99 Oximetry 10/15/17 10/15/17 10/16/17 23:39 23:46 00:00 Temperature 98.3 F Pulse Rate 80 77 88 Respiratory 14 19 16 Rate Blood Pressure 123/72 123/83 128/65 Blood Pressure [Left] O2 Sat by Pulse 100 97 96 Oximetry 10/16/17 10/16/17 10/16/17 00:16 00:30 00:45 Temperature Pulse Rate 75 81 Respiratory 21 14 16 Rate Blood Pressure 128/65 106/77 Blood Pressure [Left] O2 Sat by Pulse 97 98 100 Oximetry 10/16/17 10/16/17 10/16/17 00:46 01:00 01:16 Temperature Pulse Rate 75 67 63 Respiratory 26 H 19 19 Rate Blood Pressure 106/77 113/80 113/80 Blood Pressure [Left] O2 Sat by Pulse 96 96 96 Oximetry 10/16/17 10/16/17 10/16/17 01:30 01:46 02:00 Temperature Pulse Rate 66 69 78 Respiratory 21 21 19 Rate Blood Pressure 109/70 109/70 112/74 Blood Pressure [Left] O2 Sat by Pulse 95 96 96 Oximetry 10/16/17 10/16/17 10/16/17 02:16 02:30 02:46 Temperature Pulse Rate 70 74 72 Respiratory 16 17 17 Rate Blood Pressure 112/74 106/64 106/64 Blood Pressure [Left] O2 Sat by Pulse 96 95 93 Oximetry 10/16/17 10/16/17 10/16/17 03:00 03:16 03:30 Temperature Pulse Rate 72 73 72 Respiratory 17 17 16 Rate Blood Pressure 102/64 102/64 95/57 Blood Pressure [Left] O2 Sat by Pulse 94 95 96 Oximetry 10/16/17 10/16/17 10/16/17 03:46 04:00 04:16 Temperature Pulse Rate 73 72 69 Respiratory 18 15 15 Rate Blood Pressure 95/57 104/61 104/61 Blood Pressure [Left] O2 Sat by Pulse 96 95 97 Oximetry 10/16/17 10/16/17 10/16/17 04:35 10:44 13:42 Temperature 97.3 F L Pulse Rate 95 H 101 H Respiratory 14 18 18 Rate Blood Pressure Blood Pressure 143/93 [Left] O2 Sat by Pulse 98 99 Oximetry 10/16/17 10/17/17 20:05 10:00 Temperature 98.1 F 98.1 F Pulse Rate 119 H 95 H Respiratory 19 20 Rate Blood Pressure 131/94 Blood Pressure 115/74 [Left] O2 Sat by Pulse 97 98 Oximetry Lab Results 10/15/17 10/15/17 10/15/17 Range/Units 23:34 23:34 23:34 WBC 9.3 (4.5-11.0) K/mm3 RBC 4.78 (3.65-5.03) M/mm3 Hgb 13.7 (10.1-14.3) gm/dl Hct 40.3 (30.3-42.9) % MCV 84 (79-97) fl MCH 29 (28-32) pg MCHC 34 (30-34) % RDW 13.7 (13.2-15.2) % Plt Count 254 (140-440) K/mm3 PT 12.0 L (12.2-14.9) Sec. INR 0.85 L (0.87-1.13) Sodium 139 (137-145) mmol/L Potassium 3.7 (3.6-5.0) mmol/L Chloride 100.0 (98-107) mmol/L Carbon Dioxide 27 (22-30) mmol/L Anion Gap 16 mmol/L BUN 12 (7-17) mg/dL Creatinine 0.5 L (0.7-1.2) mg/dL Estimated GFR > 60 ml/min BUN/Creatinine Ratio 24 % Glucose 96 (65-100) mg/dL Calcium 9.1 (8.4-10.2) mg/dL Total Bilirubin 0.30 (0.1-1.2) mg/dL AST 23 (5-40) units/L ALT 28 (7-56) units/L Alkaline Phosphatase 79 (35-129) units/L Total Protein 7.6 (6.3-8.2) g/dL Albumin 4.4 (3.9-5) g/dL Albumin/Globulin Ratio 1.4 % HCG, Quant (0-4) mIU/mL Urine Color (Yellow) Urine Turbidity (Clear) Urine pH (5.0-7.0) Ur Specific [place] (1.003-1.030) Urine Protein (Negative) mg/dL Urine Glucose (UA) (Negative) mg/dL Urine Ketones (Negative) mg/dL Urine Blood (Negative) Urine Nitrite (Negative) Urine Bilirubin (Negative) Urine Urobilinogen (<2.0) mg/dL Ur Leukocyte Esterase (Negative) Urine WBC (Auto) (0.0-6.0) /HPF Urine RBC (Auto) (0.0-6.0) /HPF U Epithel Cells (Auto) (0-13.0) /HPF Urine Bacteria (Auto) (Negative) /HPF Salicylates (2.8-20.0) mg/dL Urine Opiates Screen Urine Methadone Screen Acetaminophen (10.0-30.0) ug/mL Ur Barbiturates Screen Ur Phencyclidine Scrn Ur Amphetamines Screen U Benzodiazepines Scrn Urine Cocaine Screen U Marijuana (THC) Screen Drugs of Abuse Note Plasma/Serum Alcohol (0-0.07) % 10/15/17 10/15/17 10/15/17 Range/Units 23:34 23:34 23:34 WBC (4.5-11.0) K/mm3 RBC (3.65-5.03) M/mm3 Hgb (10.1-14.3) gm/dl Hct (30.3-42.9) % MCV (79-97) fl MCH (28-32) pg MCHC (30-34) % RDW (13.2-15.2) % Plt Count (140-440) K/mm3 PT (12.2-14.9) Sec. INR (0.87-1.13) Sodium (137-145) mmol/L Potassium (3.6-5.0) mmol/L Chloride (98-107) mmol/L Carbon Dioxide (22-30) mmol/L Anion Gap mmol/L BUN (7-17) mg/dL Creatinine (0.7-1.2) mg/dL Estimated GFR ml/min BUN/Creatinine Ratio % Glucose (65-100) mg/dL Calcium (8.4-10.2) mg/dL Total Bilirubin (0.1-1.2) mg/dL AST (5-40) units/L ALT (7-56) units/L Alkaline Phosphatase (35-129) units/L Total Protein (6.3-8.2) g/dL Albumin (3.9-5) g/dL Albumin/Globulin Ratio % HCG, Quant < 2 (0-4) mIU/mL Urine Color (Yellow) Urine Turbidity (Clear) Urine pH (5.0-7.0) Ur Specific [place] (1.003-1.030) Urine Protein (Negative) mg/dL Urine Glucose (UA) (Negative) mg/dL Urine Ketones (Negative) mg/dL Urine Blood (Negative) Urine Nitrite (Negative) Urine Bilirubin (Negative) Urine Urobilinogen (<2.0) mg/dL Ur Leukocyte Esterase (Negative) Urine WBC (Auto) (0.0-6.0) /HPF Urine RBC (Auto) (0.0-6.0) /HPF U Epithel Cells (Auto) (0-13.0) /HPF Urine Bacteria (Auto) (Negative) /HPF Salicylates < 0.3 L (2.8-20.0) mg/dL Urine Opiates Screen Urine Methadone Screen Acetaminophen < 5.0 L (10.0-30.0) ug/mL Ur Barbiturates Screen Ur Phencyclidine Scrn Ur Amphetamines Screen U Benzodiazepines Scrn Urine Cocaine Screen U Marijuana (THC) Screen Drugs of Abuse Note Plasma/Serum Alcohol (0-0.07) % 10/15/17 10/15/17 10/15/17 Range/Units 23:34 23:38 23:38 WBC (4.5-11.0) K/mm3 RBC (3.65-5.03) M/mm3 Hgb (10.1-14.3) gm/dl Hct (30.3-42.9) % MCV (79-97) fl MCH (28-32) pg MCHC (30-34) % RDW (13.2-15.2) % Plt Count (140-440) K/mm3 PT (12.2-14.9) Sec. INR (0.87-1.13) Sodium (137-145) mmol/L Potassium (3.6-5.0) mmol/L Chloride (98-107) mmol/L Carbon Dioxide (22-30) mmol/L Anion Gap mmol/L BUN (7-17) mg/dL Creatinine (0.7-1.2) mg/dL Estimated GFR ml/min BUN/Creatinine Ratio % Glucose (65-100) mg/dL Calcium (8.4-10.2) mg/dL Total Bilirubin (0.1-1.2) mg/dL AST (5-40) units/L ALT (7-56) units/L Alkaline Phosphatase (35-129) units/L Total Protein (6.3-8.2) g/dL Albumin (3.9-5) g/dL Albumin/Globulin Ratio % HCG, Quant (0-4) mIU/mL Urine Color Straw (Yellow) Urine Turbidity Clear (Clear) Urine pH 8.0 H (5.0-7.0) Ur Specific [place] 1.004 (1.003-1.030) Urine Protein <15 mg/dl (Negative) mg/dL Urine Glucose (UA) Neg (Negative) mg/dL Urine Ketones Neg (Negative) mg/dL Urine Blood Neg (Negative) Urine Nitrite Neg (Negative) Urine Bilirubin Neg (Negative) Urine Urobilinogen < 2.0 (<2.0) mg/dL Ur Leukocyte Esterase Sm (Negative) Urine WBC (Auto) 2.0 (0.0-6.0) /HPF Urine RBC (Auto) 2.0 (0.0-6.0) /HPF U Epithel Cells (Auto) 1.0 (0-13.0) /HPF Urine Bacteria (Auto) 2+ (Negative) /HPF Salicylates (2.8-20.0) mg/dL Urine Opiates Screen Presumptive negative Urine Methadone Screen Presumptive negative Acetaminophen (10.0-30.0) ug/mL Ur Barbiturates Screen Presumptive negative Ur Phencyclidine Scrn Presumptive negative Ur Amphetamines Screen Presumptive negative U Benzodiazepines Scrn Presumptive positive Urine Cocaine Screen Presumptive negative U Marijuana (THC) Screen Presumptive negative Drugs of Abuse Note Disclamer Plasma/Serum Alcohol < 0.01 (0-0.07) %
[2017-10-17 18:34] VITALS: BP 125/87
== END 2017-10-17 18:32 | disposition home or self-care (01) ==
LOC: ED 22:54
DX: T42.4X1A Poisoning by benzodiazepines, accidental (unintentional), initial encounter (principal); F32.9 Major depressive disorder, single episode, unspecified; Y92.89 Other specified places as the place of occurrence of the external cause
CPT/HCPCS: 36415; 80053; 80307; 81001; 84702; 85027; 85610; 93005; 93010; 99284; G0480; 80320

== ENCOUNTER 2017-11-20 22:21 | Emergency (ER) | payer SELFPAY ==
[2017-11-20] MEDS ORDERED: NACL 0.9% 1000 ML 1,000 ML IV ONE (23:28)
[2017-11-21 00:26] LABS: Albumin 4.7 g/dL (3.9-5); BUN/Creatinine Ratio 10; Blood Urea Nitrogen 6 mg/dL (7-17); Calcium 9.5 mg/dL (8.4-10.2); Hemolysis Index 105
[2017-11-21 00:40] LABS: Hematocrit 44.1 % (30.3-42.9); Hemoglobin 15.1 gm/dl (10.1-14.3); Mean Corpuscular HGB Conc 34 % (30-34); Mean Corpuscular Hemoglobin 30 pg (28-32); Mean Corpuscular Volume 87 fl (79-97); Platelet Count 250 K/mm3 (140-440); Red Blood Count 5.08 M/mm3 (3.65-5.03); Red Cell Distribution Width 13.7 % (13.2-15.2)
[2017-11-21 01:01] LABS: Alanine Aminotransferase 40 units/L (7-56); Lymphocytes % (Auto) 32.3 % (13.4-35.0)
[2017-11-21 01:02] LABS: Basophils % (Auto) 0.7 % (0.0-1.8); Eosinophils % (Auto) 1.4 % (0.0-4.3); Monocytes % (Auto) 7.5 % (0.0-7.3)
[2017-11-21 01:03] LABS: Basophils # (Auto) 0.1 K/mm3 (0.0-0.1); Eosinophils # (Auto) 0.1 K/mm3 (0.0-0.4); Lymphocytes # (Auto) 2.6 K/mm3 (1.2-5.4); Monocytes # (Auto) 0.6 K/mm3 (0.0-0.8)
[2017-11-21 01:40] LABS: Bacteria,Urine 1+ /HPF (Negative); Bilirubin,Urine NEG (Negative); Blood,Urine NEG (Negative); Color,Urine Yellow (Yellow); Mucus,Urine FEW /HPF; Protein,Urine <15 mg/dL mg/dL (Negative); Urobilinogen,Urine < 2.0 mg/dL (<2.0)
[2017-11-21 01:46] LABS: HCG Qualitative,Urine Negative (Negative)
[2017-11-21] MEDS ORDERED: ALUM-MAG HYDROX-SIMETH 200-200-20MG/5ML PO ONE (02:08)
[2017-11-21] MEDS ORDERED: LIDOCAINE VISCOUS 2% PO ONE (02:08)
[2017-11-21] MEDS ORDERED: NORCO 5/325 PO ONE (02:40)
[2017-11-21] MEDS ORDERED: KEFLEX PO ONE (03:05)
--- NOTE | 2017-11-21 03:20 | Emergency Department Report ---
ED Abdominal Pain HPI - General Chief Complaint: Abdominal Pain Stated Complaint: ABD PAIN,NAUSEA,HEADACHE Time Seen by Provider: 11/21/17 02:06 Source: patient Mode of arrival: Ambulatory Limitations: No Limitations - History of Present Illness Initial Comments: Upper abd pain x5 days that is getting worse. Intermittent. Worse w/ food. + diarrhea. Pain is worse w/ movement. Endorses tactile fevers/chills. Has had a cholecystectomy. Feels bloated. LMP 11/02/17.No dysuria, but there is frequency. Severity scale (0 -10): 8 - Related Data Home Medications Medication Instructions Recorded Confirmed Last Taken ALPRAZolam [Xanax TAB] 0.25 mg PO DAILY PRN 10/16/17 10/16/17 10/15/17 Buspirone HCl 30 mg PO BID 10/16/17 10/16/17 Unknown Flurazepam HCl 30 mg PO QHS 10/16/17 10/16/17 10/15/17 Nefazodone HCl [Nefazodone] 100 mg PO BID 10/16/17 10/16/17 Unknown Previous Rx's Medication Instructions Recorded Last Taken Type Azithromycin [Zithromax] 250 mg PO DAILY #5 tablet 06/15/17 Unknown Rx PARoxetine [Paxil] 10 mg PO QDAY #14 tablet 06/15/17 Unknown Rx clonazePAM [KlonoPIN] 0.5 mg PO BID #30 tablet 06/15/17 Unknown Rx Benzonatate [Tessalon Perles] 100 mg PO Q8HR PRN #30 capsule 07/02/17 Unknown Rx Gentamicin 0.3% Ophth Oint 1 applicatio OP Q4H 6 Days #1 tube 07/02/17 Unknown Rx HYDROcodone/APAP 5-325 [[place] 1 each PO Q6HR PRN #10 tablet 07/02/17 Unknown Rx 5/325] Ibuprofen [Motrin] 600 mg PO Q8H PRN #30 tablet 07/02/17 Unknown Rx Cephalexin [Keflex] 500 mg PO Q8HR #15 cap 11/21/17 Unknown Rx Ondansetron [Zofran Odt] 4 mg PO Q6H PRN #10 tab.rapdis 11/21/17 Unknown Rx traMADol [Ultram 50 MG tab] 50 mg PO Q6HR PRN #10 tablet 11/21/17 Unknown Rx Allergies Allergy/AdvReac Type Severity Reaction Status Date / Time No Known Allergies Allergy Verified 06/10/17 04:34 ED Review of Systems ROS: Stated complaint: ABD PAIN,NAUSEA,HEADACHE Other details as noted in HPI Comment: All other systems reviewed and negative Constitutional: chills, fever, weakness Gastrointestinal: abdominal pain, nausea, vomiting Genitourinary: frequency Neurological: headache ED Past Medical Hx - Past Medical History Previous Medical History?: Yes Hx Psychiatric Treatment: Yes (DEPRESSION) Additional medical history: PANCREATITIS - Surgical History Past Surgical History?: Yes Hx Cholecystectomy: Yes - Social History Smoking Status: Former Smoker Substance Use Type: Alcohol - Medications Home Medications: Home Medications Medication Instructions Recorded Confirmed Last Taken Type Azithromycin [Zithromax] 250 mg PO DAILY #5 tablet 06/15/17 Unknown Rx PARoxetine [Paxil] 10 mg PO QDAY #14 tablet 06/15/17 Unknown Rx clonazePAM [KlonoPIN] 0.5 mg PO BID #30 tablet 06/15/17 Unknown Rx Benzonatate [Tessalon Perles] 100 mg PO Q8HR PRN #30 capsule 07/02/17 Unknown Rx Gentamicin 0.3% Ophth Oint 1 applicatio OP Q4H 6 Days #1 tube 07/02/17 Unknown Rx HYDROcodone/APAP 5-325 [[place] 1 each PO Q6HR PRN #10 tablet 07/02/17 Unknown Rx 5/325] Ibuprofen [Motrin] 600 mg PO Q8H PRN #30 tablet 07/02/17 Unknown Rx ALPRAZolam [Xanax TAB] 0.25 mg PO DAILY PRN 10/16/17 10/16/17 10/15/17 History Buspirone HCl 30 mg PO BID 10/16/17 10/16/17 Unknown History Flurazepam HCl 30 mg PO QHS 10/16/17 10/16/17 10/15/17 History Nefazodone HCl [Nefazodone] 100 mg PO BID 10/16/17 10/16/17 Unknown History Cephalexin [Keflex] 500 mg PO Q8HR #15 cap 11/21/17 Unknown Rx Ondansetron [Zofran Odt] 4 mg PO Q6H PRN #10 tab.rapdis 11/21/17 Unknown Rx traMADol [Ultram 50 MG tab] 50 mg PO Q6HR PRN #10 tablet 11/21/17 Unknown Rx ED Physical Exam - General Limitations: No Limitations General appearance: alert, in no apparent distress - Head Head exam: Present: atraumatic, normocephalic - Eye Eye exam: Present: normal appearance - ENT ENT exam: Present: mucous membranes moist - Neck Neck exam: Present: normal inspection - Respiratory Respiratory exam: Present: normal lung sounds bilaterally. Absent: respiratory distress - Cardiovascular Cardiovascular Exam: Present: regular rate, normal rhythm. Absent: systolic murmur, diastolic murmur, rubs, gallop - GI/Abdominal GI/Abdominal exam: Present: soft, tenderness (RUQ, epigastric, LUQ, bilateral cva ), normal bowel sounds. Absent: guarding, rebound, rigid - Extremities Exam Extremities exam: Present: normal inspection - Back Exam Back exam: Present: normal inspection - Neurological Exam Neurological exam: Present: alert, oriented X3 - Psychiatric Psychiatric exam: Present: normal affect, normal mood - Skin Skin exam: Present: warm, dry, intact, normal color. Absent: rash ED Course Vital Signs 11/20/17 11/21/17 22:47 03:03 Temperature 98.6 F Pulse Rate 77 Respiratory 16 Rate Blood Pressure 125/86 O2 Sat by Pulse 99 98 Oximetry ED Medical Decision Making - Lab Data Result diagrams: 11/20/17 23:35 11/20/17 23:35 - Medical Decision Making 32 yo female with pmhx pancreatitis that p/w abd pain. VSS. Pt is well appearing. Labs unremarkable. GI cocktail didn't help her pain. CT scans show enlarging hemangiomas, now 3 cm in diameter. UA shows concerns for infection. Low suspicion for pyelo. Believe presentation to be related to hemangiomas and uti. Will start on keflex and tramadol. She will follow up with her pcp for further evaluation and reassessment. - Differential Diagnosis pyelo, pancreatitis, sbo, malignany, , hepatitis, uti Critical care attestation.: If time is entered above; I have spent that time in minutes in the direct care of this critically ill patient, excluding procedure time. ED Disposition Clinical Impression: Liver hemangioma, UTI (urinary tract infection), Abdominal pain Disposition: DC-01 TO HOME OR SELFCARE Is pt being admited?: No Does the pt Need Aspirin: No Condition: Stable Instructions: Abdominal Pain (ED), Urinary Tract Infection in Women (ED) Additional Instructions: Follow up with your family doctor in 3-5 days for reassessment of your abdominal pain Prescriptions: Cephalexin [Keflex] 500 mg PO Q8HR #15 cap Ondansetron [Zofran Odt] 4 mg PO Q6H PRN #10 tab.rapdis PRN Reason: Nausea traMADol [Ultram 50 MG tab] 50 mg PO Q6HR PRN #10 tablet PRN Reason: Pain Referrals: PRIMARY CARE,MD [Primary Care Provider] - 3-5 Days [facility] [Outside] - 3-5 Days
--- NOTE | 2017-11-21 05:20 | Cat Scan Report ---
FINAL REPORT EXAM: CT ABDOMEN PELVIS W CON HISTORY: upper abd pain TECHNIQUE: Routine axial imaging was obtained of the abdomen and pelvis following the intravenous injection of 100 cc of Omnipaque 300. Delayed imaging was obtained through the kidneys ureters and bladder. Sagittal and coronal reconstructions were reviewed. FINDINGS: The lung bases are clear. Pleural fluid is not seen. The liver is normal size and reveals slightly diminished attenuation. Mild hepatic steatosis cannot be excluded. The liver also reveals 3 diffusely enhancing lesions in the right hepatic lobe the largest posterior medially measuring 3 cm in diameter. These most likely incidental hemangiomas. The gallbladder has been removed. The biliary tree is not dilated. The pancreas, spleen, and adrenal glands appear normal. The kidneys enhance normally. There is no evidence of hydronephrosis. The abdominal aorta is normal in caliber. The bowel loops are normal in caliber and course. The appendix is not enlarged. There is no evidence of free fluid or adenopathy. In the pelvis the uterus and adnexa appear normal. The bladder appears normal. The skeletal structures are well-maintained. IMPRESSION: Cholecystectomy. No acute process in the abdomen and pelvis. Slightly diminished attenuation of the liver suggesting mild hepatic steatosis Three diffusely enhancing right hepatic lobe lesions the larger measuring 3 cm in diameter. These are most likely incidental hemangiomas.
[2017-11-21 05:45] VITALS: BP 124/86
== END 2017-11-21 05:45 | disposition home or self-care (01) ==
LOC: ED 22:21
DX: D18.09 Hemangioma of other sites (principal); N39.0 Urinary tract infection, site not specified; R10.11 Right upper quadrant pain; R10.12 Left upper quadrant pain; F32.9 Major depressive disorder, single episode, unspecified; Z90.49 Acquired absence of other specified parts of digestive tract; Z87.891 Personal history of nicotine dependence
CPT/HCPCS: 36415; 74177; 80053; 81001; 81025; 83690; 85025; 99284; Q9967